=== PATIENT | male | born 1950 | race Caucasian/White ===

== ENCOUNTER 2019-11-28 10:36 | Emergency (ER) | payer MEDICARE, MEDICAID, SELFPAY ==
[2019-11-28 13:50] VITALS: BP 96/58; PULSE 78; RESP 18; TEMP 36.4; O2SAT 95
[2019-11-28] MEDS: cefTRIAXone 1 GM VIAL IM (14:21)
[2019-11-28] MEDS: IPRATROPIUM 0.5 MG/ALBUTEROL SULFATE 2.5 MG AMPUL.NEB 3 ML INHALATION (14:21)
[2019-11-28] MEDS: methylPREDNISolone ACETATE 40 MG/ML VIAL 80 MG IM (14:22)
[2019-11-28 14:25] VITALS: PULSE 88; RESP 19
[2019-11-28 14:40] VITALS: PULSE 87; RESP 20
[2019-11-28 14:54] LABS: Influenza Control Valid (Valid)
--- NOTE | 2019-11-28 14:57 | ED.URI ---
HPI - URI/Sore Throat General Chief Complaint: Upper Respiratory Infection Stated Complaint: sore throat, short of breath, cough Source: patient Mode of arrival: wheelchair Limitations: no limitations History of Present Illness HPI Narrative: This is a 69-year-old gentleman that presents with his with a 3 day history of cough congestion with shortness of breath with audible wheezing currently O2 saturations were 95% on room air has a history of COPD and is a smoker. Currently no nausea vomiting no chest pain or pressure no abdominal pain. MD elicited complaint: cough Pertinent past history: COPD Onset (ago): day(s) Consistency: constant Severity: mild Description of mucous: yellow Exacerbating factors: exertion and deep breaths Relieving factors: nothing Associated symptoms: cough Related Data Home Medications Medication Instructions Recorded Confirmed albuterol sulfate [Ventolin HFA] 2 puff INHALATION PRN 09/22/19 11/28/19 aspirin 81 mg PO DAILY 09/22/19 11/28/19 atorvastatin 80 mg PO HS 09/22/19 11/28/19 bupropion HCl 100 mg PO BID 09/22/19 11/28/19 clopidogrel 75 mg PO DAILY 09/22/19 11/28/19 docusate sodium 100 mg PO DAILY 09/22/19 11/28/19 metoprolol tartrate 75 mg PO BID 09/22/19 11/28/19 edhybundmdjj-lqy-ukjd-FA-vit K 1 tablet PO DAILY 09/22/19 11/28/19 [Adults Multivitamin] pregabalin [Lyrica] 200 mg PO BID 09/22/19 11/28/19 ranitidine HCl 150 mg PO BID 09/22/19 11/28/19 saw-vit E-sod zuz-vnh-wnod-pyg 1 tablet PO DAILY 09/22/19 11/28/19 [Prostate Health] Allergies Allergy/AdvReac Type Severity Reaction Status Date / Time morphine Allergy Intermediate Verified 01/19/18 09:18 No Known Allergies Allergy Unverified 08/07/12 21:07 Review of Systems Review of Systems: All systems reviewed & are unremarkable except as noted in HPI and below PMFSH Past Medical History Medical History COPD (chronic obstructive pulmonary disease) Social History Social History Smoking status: Current every day smoker Exam Const: General: no acute distress Orientation/consciousness: patient oriented x3 HENMT: Head: normal to inspection Eyes: Pupils: Equal, round and reactive pupils present Neck: Neck: normal visual inspection and no lymphadenopathy Chest: Chest palpation & inspection: normal inspection of the chest Resp: Effort & Inspection: normal respiratory effort Auscultation: wheezes and diminished lung sounds Cardio: Rate: regular rate Rhythm: regular rhythm GI: GI Palp: Yes Soft to palpation : Testes: Testes normal Urinary Catheter: Urinary Catheter: patent and draining Skin: General skin exam: normal color Psych: Mental Status: mental status grossly normal Course Vital Signs Vital signs: Vital Signs Temperature 36.4 C 11/28/19 13:50 Pulse Rate 78 11/28/19 13:50 Respiratory Rate 18 11/28/19 13:50 Blood Pressure 96/58 L 11/28/19 13:50 Pulse Oximetry 95 11/28/19 13:50 Temperature 36.4 C 11/28/19 13:50 Pulse Rate 87 11/28/19 14:40 Respiratory Rate 20 11/28/19 14:40 Blood Pressure 96/58 L 11/28/19 13:50 Pulse Oximetry 95 11/28/19 13:50 MDM - URI/Sore Throat Lab Data Labs: Lab Results 11/28/19 Range/Units 14:04 Influenza Type A Ag Negative (Negative) Influenza Type B Ag Negative (Negative) Critical Care Time Critical Care Time Critical Care Time: No Discharge Plan Discharge Clinical Impression: Bronchitis COPD (chronic obstructive pulmonary disease) Qualifiers: COPD type: unspecified COPD Qualified Code(s): J44.9 - Chronic obstructive pulmonary disease, unspecified Patient Disposition: Home, Self-Care Condition: Stable Instructions: Antibiotic Form, Acute Bronchitis (ED), COPD (Chronic Obstructive Pulmonary Disease) (ED) Additional Instructions: Take medicine as prescribed and follo
[2019-11-28 15:34] VITALS: BP 127/71
== END 2019-11-28 15:25 | disposition home or self-care (01) ==
PROVIDERS: Emergency Provider Emergency Medicine; PCP Family Medicine
DX: J40 Bronchitis, not specified as acute or chronic (principal); J44.9 Chronic obstructive pulmonary disease, unspecified; F17.200 Nicotine dependence, unspecified, uncomplicated
CPT/HCPCS: 87804; 94640; 96372; 99283; 99284; J0696; J1030

== ENCOUNTER 2020-05-23 19:53 | Emergency (ER) | payer MEDICARE, MEDICAID, SELFPAY ==
--- NOTE | ~2020-05-23 | XR_ITS ---
XR abdomen/kub 1V DATE: 05/23/2020 20:42 INDICATION: Nausea TECHNIQUE: AP view COMPARISON: None FINDINGS: No bowel obstruction or visceromegaly. There is a vascular stent overlying the right common and external iliac arteries. IMPRESSION: Nonspecific abdomen Reviewed, dictated and finalized at [facility]. Reviewed, dictated and finalized at [facility]. IMPRESSION: Nonspecific abdomen
[2020-05-23 20:00] VITALS: BP 152/83; PULSE 82; RESP 14; TEMP 36.4; O2SAT 99
--- NOTE | 2020-05-23 20:10 | ECG_ITS ---
Measurements Intervals [place] Rate: 84 P: 73 NH: 182 QRS: 61 QRSD: 93 T: 71 QT: 354 QTc: 420 Interpretive Statements SINUS RHYTHM BASELINE ARTIFACT- I, II, III, AVR, AVL, V4 NORMAL ECG Electronically Signed On 05-24-2020 7:18:53 CDT by Jamison Turcios D.O.
[2020-05-23] MEDS: ONDANSETRON INJ 4 MG/2 ML VIAL IV PUSH (20:11)
--- NOTE | 2020-05-23 20:19 | ED.NAVMDI ---
HPI - Nausea/Vomiting/Diarrhea General Chief complaint: Nausea/Vomiting/Diarrhea Stated complaint: AMB Source: patient Mode of arrival: ambulatory Limitations: no limitations and other (has had stroke and has word finding problems. ) History of Present Illness HPI Narrative: Pt is a 69 yo male who presents to the emergency department with complaints of nausea. Patient states that he has had diarrhea on and off all day long but tonight began to have nausea. He denies fevers chills nausea vomiting. Patient states that he does not remember eating anything that might have caused him to feel this way. Patient is alert and in no distress. There is some communication difficulties because patient has had a stroke and has some trouble with word finding. However he was able to answer yes and no questions fairly easily and reliably. MD elicited complaint: nausea, vomiting and diarrhea Onset (ago): hour(s) Description of vomiting: other ( No vomiting but he has had dry heaves) Associated nausea: Yes Associated abdominal pain: No Location of pain: none Exacerbating factors: none Relieving factors: none Context: marijuana use Associated symptoms: nausea/vomiting Related Data Home Medications Medication Instructions Recorded Confirmed albuterol sulfate [Ventolin HFA] 2 puff INHALATION PRN 09/22/19 05/23/20 aspirin 81 mg PO DAILY 09/22/19 05/23/20 atorvastatin 80 mg PO HS 09/22/19 05/23/20 bupropion HCl 100 mg PO BID 09/22/19 05/23/20 clopidogrel 75 mg PO DAILY 09/22/19 05/23/20 docusate sodium 100 mg PO DAILY 09/22/19 05/23/20 hvxxoonzqohq-lai-gecs-FA-vit K 1 tablet PO DAILY 09/22/19 05/23/20 [Adults Multivitamin] saw-vit E-sod zxo-ryg-spna-pyg 1 tablet PO DAILY 09/22/19 05/23/20 [Prostate Health] Allergies Allergy/AdvReac Type Severity Reaction Status Date / Time morphine Allergy Intermediate Unknown Verified 03/01/20 08:10 Review of Systems Review of Systems: All systems reviewed & are unremarkable except as noted in HPI and below Constitutional: Constitutional: Reports no additional constitutional complaints Eyes: Eyes: Reports no additional eye complaints ENT: Reports system reviewed and no additional complaints, except as documented Cardiovascular: Cardiovascular: Reports no additional cardiovascular complaints Respiratory: Respiratory: Reports no additional respiratory complaints Gastrointestinal: Gastrointestinal: Denies abdominal pain, Reports diarrhea, Reports nausea and Reports vomiting Musculoskeletal: Musculoskeletal: Reports as per HPI Integumentary/Breasts: Skin/Breast: Reports as per HPI Neurologic: Reports as per HPI Psychiatric: Psychiatric: Reports as per HPI Endocrine: Endocrine: Reports as per HPI Hematologic/Lymphatic: Hematologic/Lymphatic: Reports as per HPI Allergic/Immunologic: Allergic/Immunologic: Reports as per HPI PMF Past Medical History Medical History COPD (chronic obstructive pulmonary disease) CVA (cerebral vascular accident) GERD (gastroesophageal reflux disease) Hyperlipidemia Hypertension Lung cancer Nicotine dependence Phantom pain after amputation of lower extremity Surgical History Surgical History History of below-knee amputation of both lower extremities Social History Social History Smoking status: Current every day smoker Tobacco type: cigarettes Substance use: current Substance use type: marijuana Additional living arrangements comments: . 2 Children. 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
[2020-05-23 20:30] VITALS: BP 143/102; PULSE 88; RESP 14; O2SAT 97
[2020-05-23 20:30] LABS: Basophils Absolute Auto 0.01 K/mm3 (0.00-0.10); Basophils Percent Auto 0.2 % (0.0-1.0); Eosinophils Absolute Auto 0.05 K/mm3 (0.02-0.50); Eosinophils Percent Auto 0.9 % (1.0-6.0); Hematocrit 40.2 % (37.0-46.0); Hemoglobin 13.7 g/dL (12.4-15.3); Immature Granulocyte Absolute 0.02 K/mm3 (0.00-0.00); Immature Granulocyte Percent A 0.3 % (0.0-0.0); Lymphocytes Absolute Auto 0.68 K/mm3 (1.10-4.50); Lymphocytes Percent Auto 11.8 % (18.0-42.0); Mean Corpuscular HGB Conc 34.1 g/dL (32.0-36.0); Mean Corpuscular Hemoglobin 32.1 pg (27.0-31.0); Mean Corpuscular Volume 94.1 fL (78.0-102.0); Mean Platelet Volume 10.2 fl (8.7-11.0); Monocytes Absolute Auto 0.59 K/mm3 (0.10-0.90); Monocytes Percent Auto 10.2 % (2.0-11.0); Neutrophils Absolute Auto 4.4 K/mm3 (1.7-7.2); Neutrophils Percent Auto 76.6 % (50.0-70.0); Platelet Count Result 193 K/mm3 (150-420); Red Blood Count 4.27 M/mm3 (4.70-6.10); Red Cell Distribution Width 12.5 % (11.6-14.4); White Blood Count 5.8 K/mm3 (4.8-10.8)
[2020-05-23] MEDS: SODIUM CHLORIDE 0.9% IV 1,000 ML 999 ML IV CONT (20:30)
[2020-05-23 20:49] LABS: Alanine Aminotransferase 27 U/L (16-63); Albumin Level 3.4 g/dL (3.4-5.0); Alkaline Phosphatase 111 U/L (46-116); Anion Gap 9 mmol/L (8-16); Aspartate Amino Transferase 21 U/L (15-37); Bilirubin,Total 0.4 mg/dL (0.00-1.00); Blood Urea Nitrogen 11 mg/dL (7-18); Calcium 9.1 mg/dL (8.5-10.1); Carbon Dioxide 26 mmol/L (21-32); Chloride 104 mmol/L (98-108); Estimated Glomerular Filt Rate 49; Glucose 113 mg/dL (70-99); Lipase 294 U/L (73-393); Osmolality Calculated 288 mOsm/kg (285-295); Potassium 4.4 mmol/L (3.5-5.1); Sodium 139 mmol/L (136-145); Total Protein 7.5 g/dL (6.4-8.2)
[2020-05-23 20:50] LABS: Troponin I < 0.02 ng/mL (0.00-0.056)
[2020-05-23 21:00] VITALS: BP 170/61; PULSE 80; RESP 15; O2SAT 98
[2020-05-23 21:30] VITALS: BP 165/85; PULSE 81; RESP 12; O2SAT 100
[2020-05-23 21:32] LABS: Add Urine Microscopic? YES; Appearance Urine Clear (Clear); Bilirubin Urine Negative (Negative); Blood Urine Negative (Negative); Color Urine Yellow (Yellow); Glucose Urine UA Negative (Negative); Ketones Urine 2+ (Negative); Leukocyte Esterase Ur Negative LEU/UL (Negative); Nitrate Urine Negative (Negative); Protein Urine Negative (Negative); Specific Grav Ur 1.025 (1.010-1.020); Urobilinogen Urine 0.2 mg/dL (0.2-1.0); pH Urine 6.5 (5.0-8.0)
[2020-05-23 21:38] LABS: Bacteria Urine Trace /hpf; Mucus Urine Few /lpf; RBC Urine 0-2 /hpf (0-2); WBC Urine 0-3 /hpf (0-3)
[2020-05-23 21:45] VITALS: BP 163/50; PULSE 88; RESP 15; O2SAT 100
[2020-05-23 22:04] VITALS: BP 171/104; PULSE 88; RESP 13; TEMP 36.4; O2SAT 100
[2020-05-23] MEDS: ONDANSETRON HCL ODT 4 MG TABLET PO (22:04)
== END 2020-05-23 22:11 | disposition home or self-care (01) ==
PROVIDERS: Emergency Provider Emergency Medicine; PCP Family Medicine
DX: K52.9 Noninfective gastroenteritis and colitis, unspecified (principal); I69.328 Other speech and language deficits following cerebral infarction; J44.9 Chronic obstructive pulmonary disease, unspecified; K21.9 Gastro-esophageal reflux disease without esophagitis; E78.5 Hyperlipidemia, unspecified; I10 Essential (primary) hypertension; C34.90 Malignant neoplasm of unspecified part of unspecified bronchus or lung; G54.6 Phantom limb syndrome with pain; F17.200 Nicotine dependence, unspecified, uncomplicated; Z89.519 Acquired absence of unspecified leg below knee
CPT/HCPCS: 36415; 74018; 80053; 81001; 83690; 84484; 85025; 93005; 96361; 96374; 96376; 99283; 99284; A9270; J2405; J7030

== ENCOUNTER 2021-05-30 08:17 | Outpatient (CLI) | payer MEDICARE, MEDICAID, SELFPAY ==
--- NOTE | ~2021-05-30 | CT_ITS ---
EXAMINATION: CT diagnostic chest w con DATE: 05/30/2021 09:06 INDICATION: Malignant neoplasm of the right lung TECHNIQUE: Transaxial computed tomographic images of the chest were obtained after the administration of 75 cc of Omnipaque 350 intravenous contrast. The dose-length product (DLP) was 174.60 mGy-cm. Ite rative reconstruction was used. COMPARISON: PET/CT, 08/18/2018; outside hospital CT, 02/24/2020 FINDINGS: There is severe emphysema. A 1.6 cm right hilar nodule is unchanged in size since the most recent comparison. There are stable perihilar reticular opacities as well as bronchiectasis, consiste nt with treatment change. There is a 6 mm nodule of the left lower lobe on image 111. A calcified nod ule of the right lower lobe is consistent with old granulomatous disease. There is no pleural effusio n or pneumothorax. There is rounded atelectasis in the left lower lobe. A left internal jugular Port- A-Cath ends with its tip in the distal superior vena cava. No pathologically enlarged thoracic lymph nodes are identified. The heart size is normal. Calcified coronary artery atherosclerosis is noted. T here is moderate thoracic spondylosis. IMPRESSION: 1. Stable right hilar nodule, consistent with treated malignancy. 2. Indeterminate 6 mm nodule of the left lower lobe. Attention on follow-up examinations is recommend ed. 3. Severe emphysema. Reviewed, dictated and finalized at [facility]. IMPRESSION: 1. Stable right hilar nodule, consistent with treated malignancy. 2. Indeterminate 6 mm nodule of the left lower lobe. Attention on follow-up exa minations is recommended. 3. Severe emphysema.
[2021-05-30 08:30] LABS: Basophils Absolute Auto 0.03 K/mm3 (0.00-0.10); Basophils Percent Auto 0.6 % (0.0-1.0); Eosinophils Absolute Auto 0.12 K/mm3 (0.02-0.50); Eosinophils Percent Auto 2.4 % (1.0-6.0); Hematocrit 39.6 % (37.0-46.0); Hemoglobin 13.4 g/dL (12.4-15.3); Immature Granulocyte Absolute 0.01 K/mm3 (0.00-0.00); Immature Granulocyte Percent A 0.2 % (0.0-0.0); Lymphocytes Absolute Auto 0.98 K/mm3 (1.10-4.50); Mean Corpuscular HGB Conc 33.8 g/dL (32.0-36.0); Mean Corpuscular Hemoglobin 32.1 pg (27.0-31.0); Mean Platelet Volume 9.6 fl (8.7-11.0); Monocytes Absolute Auto 0.71 K/mm3 (0.10-0.90); Monocytes Percent Auto 14.5 % (2.0-11.0); Neutrophils Absolute Auto 3.1 K/mm3 (1.7-7.2); Neutrophils Percent Auto 62.3 % (50.0-70.0); Platelet Count Result 159 K/mm3 (150-420); Red Blood Count 4.17 M/mm3 (4.70-6.10); Red Cell Distribution Width 13.8 % (11.6-14.4); White Blood Count 4.9 K/mm3 (4.8-10.8)
[2021-05-30 08:46] LABS: Alanine Aminotransferase 38 U/L (16-63); Albumin Level 3.1 g/dL (3.4-5.0); Alkaline Phosphatase 91 U/L (46-116); Anion Gap 5 mmol/L (8-16); Aspartate Amino Transferase 22 U/L (15-37); Bilirubin,Total 0.2 mg/dL (0.00-1.00); Blood Urea Nitrogen 22 mg/dL (7-18); Calcium 8.6 mg/dL (8.5-10.1); Carbon Dioxide 31 mmol/L (21-32); Chloride 107 mmol/L (98-108); Estimated Glomerular Filt Rate 52; Glucose 83 mg/dL (70-99); Osmolality Calculated 298 mOsm/kg (285-295); Potassium 4.3 mmol/L (3.5-5.1); Sodium 143 mmol/L (136-145); Total Protein 6.6 g/dL (6.4-8.2)
== END 2021-05-30 08:18 | disposition home or self-care (01) ==
LOC: CHSIMG 08:21
PROVIDERS: PCP Family Medicine; Visit Provider Internal Medicine Hematology & Oncology
DX: C34.90 Malignant neoplasm of unspecified part of unspecified bronchus or lung (principal)
CPT/HCPCS: 36415; 71260; 80053; 85025; Q9967

== ENCOUNTER 2022-01-04 09:35 | Outpatient (CLI) | payer MEDICARE, MEDICAID, SELFPAY ==
--- NOTE | ~2022-01-04 | CT_ITS ---
EXAMINATION: CT diagnostic chest w con DATE: 01/04/2022 10:17 INDICATION: Malignant neoplasm of the lung TECHNIQUE: Transaxial computed tomographic images of the chest were obtained after the administration of 75 cc of Omnipaque 350 intravenous contrast. The dose-length product (DLP) was 173.38 mGy-cm. Ite rative reconstruction was used. COMPARISON: 05/30/2021 FINDINGS: There is a stable 1.6 cm right hilar nodule. There are unchanged perihilar reticular opacit ies and bronchiectasis. Severe emphysema is noted. A left internal jugular Port-A-Cath ends with its tip distal superior vena cava. The previously described 6 mm nodule of the left lower is not definite ly identified. No new pulmonary nodules are seen. There is rounded atelectasis in the lower lobe. No pleural effusion or pneumothorax is identified. Calcified pulmonary nodules are consistent with old g ranulomatous disease. No pathologically enlarged thoracic lymph nodes are identified. The heart size is normal. There is moderate thoracic spondylosis. IMPRESSION: 1. Stable right hilar nodule, consistent with treated malignancy. 2. Previously described left lower lobe nodule no longer evident, likely resolving infection or infla mmation. 3. Severe emphysema. Reviewed, dictated and finalized at [facility]. IMPRESSION: 1. Stable right hilar nodule, consistent with treated malignancy. 2. Previously described left lower lobe nodule no longer evident, likely resolv ing infection or inflammation. 3. Severe emphysema.
[2022-01-04 10:13] LABS: Estimated Glomerular Filt Rate 46
== END 2022-01-04 09:36 | disposition home or self-care (01) ==
PROVIDERS: PCP Nurse Practitioner Family; Visit Provider Internal Medicine Hematology & Oncology
DX: C34.91 Malignant neoplasm of unspecified part of right bronchus or lung (principal); J43.9 Emphysema, unspecified
CPT/HCPCS: 71260; Q9967

== ENCOUNTER 2022-01-16 12:41 | Outpatient (CLI) | payer MEDICARE, MEDICAID, SELFPAY ==
[2022-01-16 12:52] LABS: Basophils Percent Auto 0.5 % (0.2-1.2); Eosinophils Absolute Auto 0.1 K/mm3 (0-0.3); Eosinophils Percent Auto 1.8 % (0-4.4); Hematocrit 42.4 % (42.0-52.0); Hemoglobin 13.5 g/dL (14.0-18.0); Immature Granulocyte Absolute 0.01 K/mm3 (0.00-0.031); Immature Granulocyte Percent A 0.2 % (0-0.5); Lymphocytes Absolute Auto 1.12 K/mm3 (0.9-3.2); Lymphocytes Percent Auto 16.9 % (18.3-44.2); Mean Corpuscular HGB Conc 31.8 g/dl (32-36); Mean Corpuscular Hemoglobin 31.3 pg (26-34); Mean Corpuscular Volume 98.4 fl (80-100); Mean Platelet Volume 10.4 fl (7.4-10.4); Monocytes Absolute Auto 0.8 K/mm3 (0.1-0.6); Monocytes Percent Auto 12.4 % (2.6-8.5); Neutrophils Absolute Auto 4.5 K/mm3 (1.3-6.7); Neutrophils Percent Auto 68.2 % (45.5-73.1); Platelet Count Result 176 k/mm3 (150-375); Red Blood Count 4.31 M/mm3 (4.6-6.20); Red Cell Distribution Width 13.6 % (11.5-14.5); White Blood Count 6.6 K/mm3 (4.5-10.0)
[2022-01-16 12:57] LABS: Blood Urea Nitrogen 24 mg/dL (8-26); Carbon Dioxide 28 mmol/L (22-30); Chloride 102 mmol/L (98-109); Estimated Glomerular Filt Rate 50; Glucose 96 mg/dL (70-105); Ionized Calcium (POC) 1.24 mmol/L (1.11-1.31); Potassium 5.1 mmol/L (3.5-4.9); Sodium 139 mmol/L (138-146)
[2022-01-16 14:27] LABS: Alanine Aminotransferase 24 U/L (4-50); Alkaline Phosphatase 85 U/L (38-126); Anion Gap 5 mmol/L (8-16); Aspartate Amino Transferase 28 U/L (17-59); Bilirubin,Total 0.2 mg/dL (0.2-1.3); Blood Urea Nitrogen 24 mg/dL (9-20); Calcium 8.9 mg/dL (8.4-10.2); Carbon Dioxide 27 mmol/L (22-30); Chloride 104 mmol/L (98-107); Estimated Glomerular Filt Rate 50; Glucose 98 mg/dL (65-110); Sodium 136 mmol/L (137-145)
== END 2022-01-16 12:42 | disposition home or self-care (01) ==
LOC: ANHLAB 12:42
PROVIDERS: PCP Nurse Practitioner Family; Visit Provider Internal Medicine Hematology & Oncology
DX: C34.90 Malignant neoplasm of unspecified part of unspecified bronchus or lung (principal)
CPT/HCPCS: 36415; 80047; 80053; 85025

== ENCOUNTER 2022-07-18 14:09 | Outpatient (CLI) | payer MEDICARE, MEDICAID, SELFPAY ==
--- NOTE | ~2022-07-18 | CT_ITS ---
EXAMINATION: CT diagnostic chest wo con DATE: 07/18/2022 14:33 INDICATION: Malignant neoplasm of the lung TECHNIQUE: Computed tomography (CT) of the chest was performed without intravenous contrast. The dose -length product (DLP) was 169.04 mGy-cm. Automated exposure control and iterative reconstruction tech nique were employed. COMPARISON: 01/04/2022 FINDINGS: There is severe emphysema. A left internal jugular Port-A-Cath ends with its tip in the dis pranav superior vena cava. There is a stable 1.6 cm right hilar nodule with unchanged perihilar reticula r opacities and bronchiectasis. There is rounded atelectasis in the left lower lobe. No pleural effus ion or pneumothorax. There is a 5 mm nodule in the left upper lobe on image 41. No pathologically enl arged thoracic lymph nodes are identified. The heart size is normal. Calcified coronary artery athero sclerosis is noted. There is moderate thoracic spondylosis. IMPRESSION: 1. Stable right hilar nodule with perihilar reticular opacities and bronchiectasis, consistent with t reated malignancy. 2. Indeterminate 5 mm nodule of the left upper lobe. Follow-up CT in three months is recommended. Reviewed, dictated and finalized at [facility]. IMPRESSION: 1. Stable right hilar nodule with perihilar reticular opacities and bronchiecta sis, consistent with treated malignancy. 2. Indeterminate 5 mm nodule of the left upper lobe. Follow-up CT in three kiesha hs is recommended.
== END 2022-07-18 14:10 | disposition home or self-care (01) ==
PROVIDERS: PCP Family Medicine; Visit Provider Internal Medicine Hematology & Oncology
DX: C34.90 Malignant neoplasm of unspecified part of unspecified bronchus or lung (principal); R91.8 Other nonspecific abnormal finding of lung field
CPT/HCPCS: 71250

== ENCOUNTER 2022-07-25 14:26 | Outpatient (CLI) | payer MEDICARE, MEDICAID, SELFPAY ==
[2022-07-25 14:47] LABS: Basophils Percent Auto 0.5 % (0.2-1.2); Eosinophils Absolute Auto 0.1 K/mm3 (0-0.3); Eosinophils Percent Auto 2.3 % (0-4.4); Hematocrit 38.4 % (42.0-52.0); Hemoglobin 12.9 g/dL (14.0-18.0); Immature Granulocyte Absolute 0.02 K/mm3 (0.00-0.031); Immature Granulocyte Percent A 0.3 % (0-0.5); Lymphocytes Absolute Auto 1.18 K/mm3 (0.9-3.2); Lymphocytes Percent Auto 19.1 % (18.3-44.2); Mean Corpuscular HGB Conc 33.6 g/dl (32-36); Mean Corpuscular Hemoglobin 31.6 pg (26-34); Mean Corpuscular Volume 94.1 fl (80-100); Mean Platelet Volume 10.3 fl (7.4-10.4); Monocytes Absolute Auto 0.7 K/mm3 (0.1-0.6); Monocytes Percent Auto 11.7 % (2.6-8.5); Neutrophils Absolute Auto 4.1 K/mm3 (1.3-6.7); Neutrophils Percent Auto 66.1 % (45.5-73.1); Platelet Count Result 182 k/mm3 (150-375); Red Blood Count 4.08 M/mm3 (4.6-6.20); Red Cell Distribution Width 14.1 % (11.5-14.5); White Blood Count 6.2 K/mm3 (4.5-10.0)
[2022-07-25 14:50] LABS: Blood Urea Nitrogen 21 mg/dL (8-26); Carbon Dioxide 25 mmol/L (22-30); Chloride 101 mmol/L (98-109); Estimated Glomerular Filt Rate 50; Glucose 80 mg/dL (70-105); Ionized Calcium (POC) 1.22 mmol/L (1.11-1.31); Potassium 4.4 mmol/L (3.5-4.9); Sodium 138 mmol/L (138-146)
[2022-07-25 17:01] LABS: Alanine Aminotransferase 30 U/L (6-50); Albumin Level 3.7 g/dL (3.5-5.1); Alkaline Phosphatase 84 U/L (38-126); Anion Gap 9 mmol/L (8-16); Aspartate Amino Transferase 37 U/L (17-59); Bilirubin,Total 0.3 mg/dL (0.2-1.3); Blood Urea Nitrogen 21 mg/dL (9-20); Calcium 8.5 mg/dL (8.4-10.2); Carbon Dioxide 25 mmol/L (22-30); Chloride 102 mmol/L (98-107); Estimated Glomerular Filt Rate 60; Glucose 80 mg/dL (65-110); Potassium 4.4 mmol/L (3.4-5.0); Sodium 136 mmol/L (137-145)
== END 2022-07-25 14:27 | disposition home or self-care (01) ==
PROVIDERS: PCP Family Medicine; Visit Provider Internal Medicine Hematology & Oncology
DX: C34.90 Malignant neoplasm of unspecified part of unspecified bronchus or lung (principal)
CPT/HCPCS: 36415; 80047; 80053; 85025

== ENCOUNTER 2022-09-03 09:33 | Outpatient (CLI) | payer MEDICARE, SELFPAY ==
[2022-09-03 10:56] LABS: Prostate Specific Antigen 0.4 ng/mL (< OR = 4.0)
== END 2022-09-03 09:34 | disposition home or self-care (01) ==
LOC: CHSLAB 09:35
PROVIDERS: PCP Family Medicine; Visit Provider Nurse Practitioner Family
DX: Z12.5 Encounter for screening for malignant neoplasm of prostate (principal)
CPT/HCPCS: 36415; 84153; G0103

== ENCOUNTER 2022-10-28 07:31 | Outpatient (CLI) | payer MEDICARE, MEDICAID, SELFPAY ==
--- NOTE | ~2022-10-28 | CT_ITS ---
CT Scan of the Chest without Contrast: Clinical Indication: Lung cancer Technique: Contiguous sections were acquired throughout the chest without intravenous contrast. Dose reduction technique was used on this scan by utilizing automated exposure control and iterative recon struction technique. The dose-length product (DLP) was 183.99 mGy-cm. COMPARISON: 07/18/2022 Findings: There is no evidence of any significant mediastinal, hilar or axillary lymphadenopathy. The mediastin al soft tissues appear normal. There is no evidence of pleural or pericardial effusion. Patient is status post right upper lobectomy. There is focal soft tissue thickening and increased den sity in the right hilar region, stable from prior exam, likely postoperative and/or postradiation jeff nge. Large calcified right lower lobe granuloma present. There is moderate emphysema. There is a stab le small irregular nodule in the left upper lobe measuring 7 mm in diameter (axial image 45). Images through the upper abdomen reveal no abnormalities. Impression: Status post right upper lobectomy. Stable postoperative and/or postradiation changes at the right hil um. 7 mm left upper lobe pulmonary nodule, unchanged, indeterminate. Continued follow up to document 2 ye ars of stability is advised. Moderate emphysema. Reviewed, dictated and finalized at location . [facility] Impression: Status post right upper lobectomy. Stable postoperative and/or postradiation ch anges at the right hilum. 7 mm left upper lobe pulmonary nodule, unchanged, indeterminate. Continued foll ow up to document 2 years of stability is advised. Moderate emphysema.
== END 2022-10-28 07:32 | disposition home or self-care (01) ==
PROVIDERS: PCP Family Medicine; Visit Provider Internal Medicine Hematology & Oncology
DX: C34.90 Malignant neoplasm of unspecified part of unspecified bronchus or lung (principal); R91.1 Solitary pulmonary nodule; J43.9 Emphysema, unspecified
CPT/HCPCS: 71250

== ENCOUNTER 2022-11-04 14:03 | Outpatient (CLI) | payer MEDICARE, MEDICAID, SELFPAY ==
[2022-11-04 14:15] LABS: Basophils Percent Auto 0.6 % (0.2-1.2); Eosinophils Absolute Auto 0.2 K/mm3 (0-0.3); Eosinophils Percent Auto 2.4 % (0-4.4); Hemoglobin 12.8 g/dL (14.0-18.0); Immature Granulocyte Absolute 0.02 K/mm3 (0.00-0.031); Immature Granulocyte Percent A 0.3 % (0-0.5); Lymphocytes Absolute Auto 1.35 K/mm3 (0.9-3.2); Lymphocytes Percent Auto 19.3 % (18.3-44.2); Mean Corpuscular HGB Conc 33.7 g/dl (32-36); Mean Corpuscular Hemoglobin 31.8 pg (26-34); Mean Corpuscular Volume 94.5 fl (80-100); Monocytes Absolute Auto 0.8 K/mm3 (0.1-0.6); Neutrophils Absolute Auto 4.7 K/mm3 (1.3-6.7); Neutrophils Percent Auto 66.4 % (45.5-73.1); Platelet Count Result 188 k/mm3 (150-375); Red Blood Count 4.02 M/mm3 (4.6-6.20); Red Cell Distribution Width 13.8 % (11.5-14.5)
== END 2022-11-04 14:04 | disposition home or self-care (01) ==
LOC: ANHLAB 14:05
PROVIDERS: PCP Family Medicine; Visit Provider Internal Medicine Hematology & Oncology
DX: C34.90 Malignant neoplasm of unspecified part of unspecified bronchus or lung (principal)
CPT/HCPCS: 36415; 85025

== ENCOUNTER 2023-02-18 09:28 | Emergency (ER) | payer MEDICARE, MEDICAID, SELFPAY ==
[2023-02-18] VITALS (17 sets, daily range): BP systolic 120–157; BP diastolic 68–89; PULSE 90–105; RESP 18–20; TEMP 36.3–36.8; O2SAT 91–99
--- NOTE | ~2023-02-18 | XR_ITS ---
EXAMINATION: XR chest 2V DATE: 02/18/2023 10:00 INDICATION: Dyspnea and wheezing. Prior right hilar lung cancer. TECHNIQUE: frontal and lateral views of the chest were obtained. COMPARISON: Chest radiograph dated 09/22/[address] dated 10/28/2022 FINDINGS: Emphysema with increased lucency and architectural distortion in the upper lung zones, right greater than left. Chronic calcified nodule in the right lower lung zone and calcified right hilar lymph node consistent with old granulomatous disease. Subtle opacity posterior left lower lung zone correspondi ng to a region of atelectasis/scarring on prior CT. No other airspace opacities, pulmonary edema, ple ural effusion or pneumothorax. Heart size is normal. Left internal jugular central venous port cathet er with distal tip at the superior cavoatrial junction. IMPRESSION: 1. Emphysema. No acute cardiopulmonary disease. Reviewed, dictated and finalized at [facility].
--- NOTE | 2023-02-18 09:34 | ED.GENADULT ---
HPI - General Adult General Chief complaint: Shortness of Breath/Dyspnea Stated complaint: short of breath Time Seen by Provider: 02/18/23 09:34 History of Present Illness HPI narrative: The patient is a 72-year-old male with history of non-small cell lung cancer of the right hilum, status post chemotherapy and radiation therapy in the past, now with a new mass in the left lower lobe that is under observation by his oncologist. History of peripheral vascular disease status post fem-pop bypass and subsequent bilateral uwqod-oog-fizh amputations. Prior stroke, hypertension, abdominal aortic aneurysm, hyperlipidemia, GERD. He does have history of COPD and has been prescribed an albuterol inhaler since October of this year by his oncologist. He does not need oxygen at home and has not been on steroids. He does continue to smoke cigarettes. The patient has a 2 week history of increasing shortness of breath, with occasional wheezing noted. He does have a dry nonproductive cough. No fevers or chills or diaphoresis. No weakness. No rhinorrhea or nasal congestion. His has been giving him her oxygen for the last 3 days and he feels better with that. No chest pain or discomfort or pressure. No abdominal pain. No nausea vomiting. Related Data Home Medications Medication Instructions Recorded Confirmed docusate sodium 100 mg capsule 100 mg PO DAILY 09/22/19 02/18/23 multivit with minerals-iron 18 1 tablet PO DAILY 09/22/19 02/18/23 mg-folic ac 400 mcg-vit K 25 mcg tablet (Adults Multivitamin) saw palm 160 mg-vit E 100 1 tablet PO DAILY 09/22/19 02/18/23 unit-selen 100 ztu-uvze-zypzal-pygeum tablet (Prostate Health) Allergies Allergy/AdvReac Type Severity Reaction Status Date / Time morphine Allergy Intermediate Hypotension Verified 02/18/23 09:30 and Hallucinations Review of Systems Review of Systems: All systems reviewed & are unremarkable except as noted in HPI and below Constitutional: Constitutional: Denies chills, Denies excessive sweating, Denies fatigue, Denies fever(s), Denies headache(s) and Denies weakness Eyes: Eyes: Denies change in vision and Denies photophobia ENT: Denies dysphagia, Denies dizziness, Denies headache(s), Denies lip swelling, Denies nasal congestion, Denies sore throat and Denies tongue swelling Cardiovascular: Cardiovascular: Denies chest pain, Denies syncope and Denies rapid heart rate Respiratory: Respiratory: Reports cough, Reports dyspnea and Reports wheezing Gastrointestinal: Gastrointestinal: Denies abdominal pain, Denies constipation, Denies dysphagia, Denies diarrhea, Denies nausea and Denies vomiting Genitourinary: Genitourinary: Denies hematuria, Denies dysuria, Denies urinary frequency and Denies urinary urgency Musculoskeletal: Musculoskeletal: Denies back pain, Denies myalgias, Denies arthralgias, Denies joint swelling and Denies numbness Integumentary/Breasts: Skin/Breast: Denies pruritus, Denies erythema and Denies rash Neurologic: Denies confusion, Denies dizziness, Denies syncope, Denies headache(s), Denies focal weakness, Denies numbness and Denies weakness Psychiatric: Psychiatric: Denies anxiety and Denies confusion Endocrine: Endocrine: Denies excessive sweating and Denies fatigue Hematologic/Lymphatic: Hematologic/Lymphatic: Denies easy bleeding and Denies easy bruising Allergic/Immunologic: Allergic/Immunologic: Denies lip swelling and Denies tongue swelling PMFSH Past Medical History Medical History COPD (chronic obstructive pulmonary disease) CVA (cerebral vascular accident) GERD (gastroesophageal reflux disease) Hyperlipidemia Hypertension Lung cancer Nicotine dependence Phantom pain after amputation of lower extremity Surgical History Surgical History History of below-knee amputation of both lower extremities S/P femoral-
--- NOTE | 2023-02-18 09:40 | ECG_ITS ---
Measurements Intervals [place] Rate: 99 P: 89 NE: 180 QRS: 80 QRSD: 85 T: 83 QT: 341 QTc: 439 Interpretive Statements SINUS RHYTHM DELAYED PRECORDIAL R/S TRANSITION BORDERLINE ECG COMPARED TO ECG 05/23/2020 20:20:08 NO SIGNIFICANT CHANGES Electronically Signed On 02-18-2023 12:15:16 CDT by Jamison Turcios D.O.
[2023-02-18] MEDS: IPRATROPIUM 0.5 MG/ALBUTEROL SULFATE 2.5 MG AMPUL.NEB 3 ML INHALATION (10:08)
[2023-02-18] MEDS: methylPREDNISolone SOD SUCC 125 MG VIAL IV PUSH (10:20)
[2023-02-18] MEDS: MAGNESIUM SULF 2 GM/WATER 50ML 2 GM/50 ML BAG IVPB (10:21)
[2023-02-18 10:38] LABS: Base Excess ABG 2.5 mmol/L (0-2); HCO3 ABG 26.7 mmol/L (23-29); Oxygen Content ABG 21.1 %vol (16.0-22.0); Oxygen Saturation ABG 94.4 % (95-97); Oxyhemoglobin 93.4 % (94-100); PCO2 ABG 40.1 mmHg (35-45); PO2 ABG 67.6 mmHg (75-85); Total Hemoglobin 16.1 g/dL (12.0-18.0); pH ABG 7.44 (7.35-7.45)
[2023-02-18 10:39] LABS: Device ROOM AIR; Modified Allen's Test Pass; Site Drawn RIGHT RADIAL
[2023-02-18 10:42] LABS: Basophils Absolute Auto 0.07 K/mm3 (0.00-0.10); Basophils Percent Auto 0.6 % (0.0-1.0); Eosinophils Absolute Auto 0.41 K/mm3 (0.02-0.50); Eosinophils Percent Auto 3.7 % (1.0-6.0); Hematocrit 43.2 % (37.0-46.0); Hemoglobin 14.7 g/dL (12.4-15.3); Immature Granulocyte Absolute 0.05 K/mm3 (0.00-0.00); Immature Granulocyte Percent A 0.5 % (0.0-0.0); Lymphocytes Absolute Auto 1.38 K/mm3 (1.10-4.50); Lymphocytes Percent Auto 12.6 % (18.0-42.0); Mean Corpuscular Hemoglobin 31.7 pg (27.0-31.0); Mean Corpuscular Volume 93.1 fL (78.0-102.0); Mean Platelet Volume 10.6 fl (8.7-11.0); Monocytes Absolute Auto 0.97 K/mm3 (0.10-0.90); Monocytes Percent Auto 8.8 % (2.0-11.0); Neutrophils Absolute Auto 8.1 K/mm3 (1.7-7.2); Neutrophils Percent Auto 73.8 % (50.0-70.0); Platelet Count Result 212 K/mm3 (150-420); Red Blood Count 4.64 M/mm3 (4.70-6.10); Red Cell Distribution Width 13.5 % (11.6-14.4)
[2023-02-18 10:55] LABS: D Dimer 0.66 mg/L (0.19-0.50)
[2023-02-18 11:01] LABS: Alanine Aminotransferase 29 U/L (16-63); Albumin Level 3.6 g/dL (3.4-5.0); Alkaline Phosphatase 99 U/L (46-116); Anion Gap 8 mmol/L (8-16); Aspartate Amino Transferase 25 U/L (15-37); Bilirubin,Total 0.6 mg/dL (0.00-1.00); Blood Urea Nitrogen 23 mg/dL (7-18); CRP 1.6 mg/dL (0.0-0.9); Calcium 9.5 mg/dL (8.5-10.1); Carbon Dioxide 31 mmol/L (21-32); Chloride 97 mmol/L (98-108); Estimated Glomerular Filt Rate 54; Glucose 103 mg/dL (70-99); NT Pro B Type Natriuretic Pept 307 pg/mL (0-125); Osmolality Calculated 285 mOsm/kg (285-295); Potassium 4.4 mmol/L (3.5-5.1); Sodium 136 mmol/L (136-145); Total Protein 7.8 g/dL (6.4-8.2); Troponin I 14.1 ng/L (0.00-60.4)
[2023-02-18 11:22] LABS: Influenza A QL RT-PCR Negative (Negative); Influenza B QL RT-PCR Negative (Negative); SARS-CoV-2 RNA PCR Negative (Negative)
[2023-02-18 11:24] LABS: RSV RNA, RT-PCR Negative (Negative)
[2023-02-18 11:41] LABS: Erythrocyte Sedimentation Rate 30 mm/hr (0-20)
== END 2023-02-18 11:28 | disposition home or self-care (01) ==
PROVIDERS: Emergency Provider Emergency Medicine; PCP Family Medicine
DX: J44.1 Chronic obstructive pulmonary disease with (acute) exacerbation (principal); I10 Essential (primary) hypertension; I71.40 Abdominal aortic aneurysm, without rupture, unspecified; E78.5 Hyperlipidemia, unspecified; K21.9 Gastro-esophageal reflux disease without esophagitis; F17.210 Nicotine dependence, cigarettes, uncomplicated; Z86.73 Personal history of transient ischemic attack (TIA), and cerebral infarction without residual deficits; Z89.512 Acquired absence of left leg below knee; Z89.511 Acquired absence of right leg below knee; F12.90 Cannabis use, unspecified, uncomplicated; Z85.118 Personal history of other malignant neoplasm of bronchus and lung; Z92.21 Personal history of antineoplastic chemotherapy; Z92.3 Personal history of irradiation; Z20.822 Contact with and (suspected) exposure to COVID-19
CPT/HCPCS: 36415; 36600; 71046; 80053; 82805; 83605; 83880; 84484; 85025; 85380; 85652; 86140; 87637; 93005; 94640; 96365; 96375; 99284; J2930; J3475

== ENCOUNTER 2023-03-03 10:10 | Outpatient (CLI) | payer MEDICARE, MEDICAID, SELFPAY ==
--- NOTE | ~2023-03-03 | CT_ITS ---
EXAMINATION:CT diagnostic chest wo con DATE: 03/03/2023 10:54 INDICATION: Malignant neoplasm of lung. TECHNIQUE: Computed tomography (CT) of the chest was performed without intravenous contrast. Automate d exposure control and iterative reconstruction technique were employed. The dose-length product (DLP ) was 181.16 mGy-cm. COMPARISON: Chest CT 10/28/2022 FINDINGS: There is moderate emphysema. A calcified right lung nodule and calcified right hilar lymph nodes are consistent with old granulomatous disease. There are airspace opacities with volume loss an d architectural distortion in perihilar right upper lobe, consistent with radiation fibrosis. There i s mild peripheral scarring in left lower lobe. Again seen are a few scattered nodules in the lungs me asuring up to 3 mm, likely benign. There is a 10 mm nodule in left upper lobe. No pleural effusion. T here is a left internal jugular port with tip in proximal right atrium. The heart size is normal. The re are coronary artery calcifications. No pericardial effusion. There is a small sliding hiatal herni a. Calcifications in the spleen are consistent with old granulomatous disease. There is mild bilatera l gynecomastia. There is severe cervical spondylosis and mild thoracic spondylosis. IMPRESSION: 1. 10 mm nodule in left lung upper lobe, increased from 8 mm on 10/28/2022, suspicious for primary bron chogenic carcinoma or metastatic disease. 2. 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 3. Moderate emphysema. Reviewed, dictated and finalized at [facility]. IMPRESSION: 1. 10 mm nodule in left lung upper lobe, increased from 8 mm on 10/28/2022, suspi cious for primary bronchogenic carcinoma or metastatic disease. 2. 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 3. Moderate emphysema.
== END 2023-03-03 10:11 | disposition home or self-care (01) ==
PROVIDERS: PCP Family Medicine; Visit Provider Internal Medicine Hematology & Oncology
DX: C34.90 Malignant neoplasm of unspecified part of unspecified bronchus or lung (principal); J43.9 Emphysema, unspecified; J84.10 Pulmonary fibrosis, unspecified
CPT/HCPCS: 71250

== ENCOUNTER 2023-03-10 11:58 | Outpatient (CLI) | payer MEDICARE, MEDICAID, SELFPAY ==
[2023-03-10 12:13] LABS: Basophils Percent Auto 0.3 % (0.2-1.2); Eosinophils Absolute Auto 0.2 K/mm3 (0-0.3); Eosinophils Percent Auto 3.4 % (0-4.4); Hematocrit 41.6 % (42.0-52.0); Hemoglobin 13.9 g/dL (14.0-18.0); Immature Granulocyte Absolute 0.02 K/mm3 (0.00-0.031); Immature Granulocyte Percent A 0.3 % (0-0.5); Lymphocytes Percent Auto 14.1 % (18.3-44.2); Mean Corpuscular HGB Conc 33.4 g/dl (32-36); Mean Corpuscular Hemoglobin 31.8 pg (26-34); Mean Corpuscular Volume 95.2 fl (80-100); Mean Platelet Volume 10.6 fl (7.4-10.4); Monocytes Absolute Auto 0.7 K/mm3 (0.1-0.6); Monocytes Percent Auto 9.7 % (2.6-8.5); Neutrophils Absolute Auto 5.1 K/mm3 (1.3-6.7); Neutrophils Percent Auto 72.2 % (45.5-73.1); Platelet Count Result 164 k/mm3 (150-375); Red Blood Count 4.37 M/mm3 (4.6-6.20); Red Cell Distribution Width 14.4 % (11.5-14.5); White Blood Count 7.1 K/mm3 (4.5-10.0)
[2023-03-10 12:17] LABS: Blood Urea Nitrogen 27 mg/dL (8-26); Carbon Dioxide 29 mmol/L (22-30); Chloride 103 mmol/L (98-109); Estimated Glomerular Filt Rate 54; Glucose 82 mg/dL (70-105); Ionized Calcium (POC) 1.22 mmol/L (1.11-1.31); Potassium 4.5 mmol/L (3.5-4.9); Sodium 142 mmol/L (138-146)
[2023-03-10 15:47] LABS: Alanine Aminotransferase 94 U/L (6-50); Albumin Level 3.8 g/dL (3.5-5.1); Alkaline Phosphatase 82 U/L (38-126); Anion Gap 5 mmol/L (8-16); Aspartate Amino Transferase 74 U/L (17-59); Bilirubin,Total 0.3 mg/dL (0.2-1.3); Blood Urea Nitrogen 27 mg/dL (9-20); Calcium 8.8 mg/dL (8.4-10.2); Carbon Dioxide 31 mmol/L (22-30); Chloride 104 mmol/L (98-107); Estimated Glomerular Filt Rate 54; Glucose 81 mg/dL (65-110); Potassium 4.5 mmol/L (3.4-5.0); Sodium 140 mmol/L (137-145)
== END 2023-03-10 11:59 | disposition home or self-care (01) ==
LOC: ANHLAB 12:00
PROVIDERS: PCP Family Medicine; Visit Provider Internal Medicine Hematology & Oncology
DX: C34.90 Malignant neoplasm of unspecified part of unspecified bronchus or lung (principal)
CPT/HCPCS: 36415; 80047; 80053; 85025

== ENCOUNTER 2023-04-08 07:06 | Outpatient (CLI) | payer MEDICARE, MEDICAID, SELFPAY ==
--- NOTE | ~2023-04-08 | PE_ITS ---
EXAMINATION: PET skull to mid thigh DATE: 04/08/2023 09:24 INDICATION: Malignant neoplasm of lung. TECHNIQUE: Blood glucose level was 98 mg/dL. 9.793 mCi of 18-fluorodeoxyglucose (18-FDG) was administ ered i.v. Low dose computed tomography (CT) images were acquired from the base of the brain to the pr oximal thighs for attenuation correction and anatomic localization. Automated exposure control was em ployed. Dose-length product (DLP) was 545 mGy-cm. Positron emission tomography (PET) images were acqu ired in the same distribution. COMPARISON: Chest CT 03/03/2023 FINDINGS: Head/neck: There are no pathologically enlarged lymph nodes. There is a left internal jugular port wi th tip in proximal right atrium. There is severe cervical spondylosis. Chest: There is moderate emphysema. There are airspace opacities with volume loss in right perihilar region with maximum SUV of 7.1. A calcified right lung nodule and calcified right hilar lymph nodes a re consistent with old granulomatous disease. There is a 10 mm nodule in left upper lobe with maximum SUV of 9.4. There is mild atelectasis in left lower lobe. The heart size is normal. There are spencer ry artery calcifications. No pericardial effusion. Again seen is an ununited fracture of right 11th r ib. There are old healed left rib fractures. Abdomen/pelvis/proximal thighs: There is a small sliding hiatal hernia. The liver, gallbladder, and p ancreas are normal. Calcifications in the spleen are consistent with old granulomatous disease. The a drenal glands and right kidney are normal. There is a 16 mm cyst in left kidney. There is calcified a therosclerosis of the aorta and many of the other arteries. There is a stent in right external iliac artery. There is a graft from right common femoral artery to left common femoral artery. There is a r etained graft fragment in the lower anterior abdominal wall. IMPRESSION: 1. 10 mm nodule in left lung upper lobe with increased activity, consistent with primary bronchogenic carcinoma or metastatic disease. 2 . Airspace opacities with volume loss and increased activity in right perihilar region, consistent with radiation pneumonitis. 3. Moderate emphysema. Reviewed, dictated and finalized at location A. IMPRESSION: 1. 10 mm nodule in left lung upper lobe with increased activity, consistent wit h primary bronchogenic carcinoma or metastatic disease. 2 . Airspace opacities with volume loss and increased activity in right perihil ar region, consistent with radiation pneumonitis. 3. Moderate emphysema.
[2023-04-08 07:52] LABS: Glucose Point of Care 98 mg/dl (65-105)
== END 2023-04-08 07:07 | disposition home or self-care (01) ==
PROVIDERS: PCP Family Medicine; Visit Provider Internal Medicine Hematology & Oncology
DX: C7A.090 Malignant carcinoid tumor of the bronchus and lung (principal); R91.1 Solitary pulmonary nodule; J43.9 Emphysema, unspecified; R91.8 Other nonspecific abnormal finding of lung field
CPT/HCPCS: 78815; A9552

== ENCOUNTER 2023-04-16 09:58 | Outpatient (RCR) | payer MEDICAID, SELFPAY ==
--- NOTE | 2023-04-16 10:23 | WPDONCPN ---
Progress Note: A/P (1) Lung cancer Code(s): C34.90 - Malignant neoplasm of unspecified part of unspecified bronchus or lung Status: Chronic Assessment and plan: Patient with HX OF STAGE II SQUAMOUS CELL CARCINOMA OF THE RIGHT HILAR REGION DX 10/22/2018. -S/P CONCURRENT CHEMORADIATION COMPLETED 12/2018. WAS NOT SURGICAL CANDIDATE DUE TO SEVERE COPD A CT chest was done 03/03/23 for increased cough and showed increasing size of 10mm ANTELMO nodule. This was followed with PET/CT scan done 04/08/23 which shows increase uptake in ANTELMO with SUV o 7.1 concerning for new or metastatic cancer. Right hilar region has radiation pneumonitis with increased uptake but no mass. Patient continues to smoke. I believe this is new primary. Nodule is 10mm and I am sending the patient to radiation oncologist for consideration of SBRT. Patient stated understanding. He also has cough and I have prescribed him Z pack. He will RTC to see Dr. Donis in 1 month. - Time Spent With Patient Total time spent is greater than 50% in coordination of care (as documented) at patient's floor/unit and/or counseling patient: 25 - 35 minutes Subjective Interval history: REASON FOR VISIT: HX OF STAGE II SQUAMOUS CELL CARCINOMA OF THE RIGHT HILAR REGION DX 10/22/2018 -S/P CONCURRENT CHEMORADIATION COMPLETED 12/2018. WAS NOT SURGICAL CANDIDATE DUE TO SEVERE COPD HPI: Patient is here for follow up of the PET/CT scan done 04/08/23 for new 10mm ANTELMO nodule seen in the Chest CT scan don 03/03/23. PET/CT shows increase uptake in ANTELMO with SUV o 7.1 concerning for new or metastatic cancer. Right hilar region has radiation pneumonitis with increased uptake but no mass. Patient continues to smoke. Review of Systems - Review of Systems Patient continues to smoke. reports he is coughing more and bringing up phlegm. there is no fever or chills. No chest pain or hemoptysis. he has chronic dyspnea. Denies headache, dizziness, falls, Denies abdominal pain, n/v/d. Denies hematochezia or melena. No hematuria. No lymphadenopathy Exam - Constitutional no acute distress - Routine HEENT Exam Head: Present: atraumatic, normal inspection Eye: Present: EOMI ENT: Present: mucous membranes dry, nares patent - Routine Neck Exam Present: full ROM - Routine Respiratory Exam Present: decreased breath sounds, prolonged expiratory phase, wheezes - Routine Cardiovascular Exam Cardiovascular: Present: RRR, S1, S2 - Routine Extremities Exam Present: amputation (bilateral above knee amputation) - Routine Skin Exam Present: intact - Routine Neurological Exam Present: alert, oriented X3, CN II-XII intact PN: Objective Data - Imaging CT scan - chest Radiologist's impression: Ordering Physician: Jos Donis MD Date of Service: 04/08/23 Procedure(s): PET skull to mid thigh Accession Number(s): [id number] cc: Jos Donis MD; Greg Burgos DO~ EXAMINATION: PET skull to mid thigh DATE: 04/08/2023 09:24 INDICATION: Malignant neoplasm of lung. TECHNIQUE: Blood glucose level was 98 mg/dL. 9.793 mCi of 18-fluorodeoxyglucose (18-FDG) was administered i.v. Low dose computed tomography (CT) images were acquired from the base of the brain to the proximal thighs for attenuation correction and anatomic localization. Automated exposure control was employed. Dose-length product (DLP) was 545 mGy-cm. Positron emission tomography (PET) images were acquired in the same distribution. COMPARISON: Chest CT 03/03/2023 FINDINGS: Head/neck: There are no pathologically enlarged lymph nodes. There is a left internal jugular port with tip in proximal right atrium. There is severe cervical spondylosis. Chest: There is moderate emphysema. There are airspace opacities with volume loss in right perihilar region with maximum SUV of 7.1. A calcified right lung nodule and calcified right hilar lymph nodes are consistent with old granulomatous disease. There is a 10 mm nodule in left upp
== END 2023-04-21 10:50 ==
LOC: AMCINF 09:58
PROVIDERS: PCP Family Medicine; Visit Provider Internal Medicine
DX: C34.90 Malignant neoplasm of unspecified part of unspecified bronchus or lung (principal)
CPT/HCPCS: 99199

== ENCOUNTER 2023-04-30 09:46 | Outpatient (CLI) | payer MEDICARE, SELFPAY ==
[2023-04-30 09:59] LABS: Basophils Absolute Auto 0.04 K/mm3 (0.00-0.10); Basophils Percent Auto 0.4 % (0.0-1.0); Eosinophils Absolute Auto 0.33 K/mm3 (0.02-0.50); Hematocrit 42.2 % (37.0-46.0); Hemoglobin 14.3 g/dL (12.4-15.3); Immature Granulocyte Absolute 0.04 K/mm3 (0.00-0.00); Immature Granulocyte Percent A 0.4 % (0.0-0.0); Lymphocytes Absolute Auto 1.05 K/mm3 (1.10-4.50); Lymphocytes Percent Auto 9.4 % (18.0-42.0); Mean Corpuscular HGB Conc 33.9 g/dL (32.0-36.0); Mean Corpuscular Hemoglobin 32.3 pg (27.0-31.0); Mean Corpuscular Volume 95.3 fL (78.0-102.0); Mean Platelet Volume 10.5 fl (8.7-11.0); Monocytes Absolute Auto 0.82 K/mm3 (0.10-0.90); Monocytes Percent Auto 7.3 % (2.0-11.0); Neutrophils Absolute Auto 8.9 K/mm3 (1.7-7.2); Neutrophils Percent Auto 79.5 % (50.0-70.0); Platelet Count Result 174 K/mm3 (150-420); Red Blood Count 4.43 M/mm3 (4.70-6.10); White Blood Count 11.2 K/mm3 (4.8-10.8)
[2023-04-30 10:55] LABS: Alanine Aminotransferase 37 U/L (16-63); Albumin Level 3.3 g/dL (3.4-5.0); Alkaline Phosphatase 96 U/L (46-116); Anion Gap 8 mmol/L (8-16); Aspartate Amino Transferase 25 U/L (15-37); Bilirubin,Total 0.4 mg/dL (0.00-1.00); Blood Urea Nitrogen 26 mg/dL (7-18); Calcium 8.9 mg/dL (8.5-10.1); Carbon Dioxide 30 mmol/L (21-32); Chloride 101 mmol/L (98-108); Estimated Glomerular Filt Rate 56; Glucose 105 mg/dL (70-99); Osmolality Calculated 292 mOsm/kg (285-295); Potassium 4.2 mmol/L (3.5-5.1); Sodium 139 mmol/L (136-145); Total Protein 6.8 g/dL (6.4-8.2); Vitamin B12 1410 pg/mL (193-986)
[2023-04-30 10:56] LABS: Folic Acid > 20.0 ng/mL (8.6->20)
[2023-04-30 10:57] LABS: Thyroid Stimulating Hormone Reflex 2.53 u/IU/mL (0.36-3.74)
== END 2023-04-30 09:47 | disposition home or self-care (01) ==
LOC: CHSLAB 09:47
PROVIDERS: PCP Family Medicine; Visit Provider Family Medicine
DX: E11.9 Type 2 diabetes mellitus without complications (principal); E53.8 Deficiency of other specified B group vitamins; R41.89 Other symptoms and signs involving cognitive functions and awareness
CPT/HCPCS: 36415; 80053; 82607; 82746; 84443; 85025

== ENCOUNTER 2023-05-01 08:18 | Outpatient (CLI) | payer MEDICARE, MEDICAID, SELFPAY ==
--- NOTE | ~2023-05-01 | MR_ITS ---
EXAMINATION: MR brain IAC wo con DATE: 05/01/2023 08:55 INDICATION: Vertigo. TECHNIQUE: Magnetic resonance imaging (MRI) of the brain, brainstem, and internal auditory canals was performed without intravenous contrast. COMPARISON: Brain MRI 08/29/2018 FINDINGS: There is an old infarct in left frontotemporal parietal region. There is an acute infarct i n right temporal occipital region in the expected distribution of right middle cerebral artery. There is a small old infarct in right cerebellum. There are old lacunar infarcts in the bilateral basal ga nglia. There are scattered areas of nonspecific increased T2-weighted signal intensity in the cerebra l white matter and ryan. There is no intracranial hemorrhage or abnormal mass lesion. The ventricles are normal in size. The orbits are normal. There is mucosal thickening in the paranasal sinuses. The mastoid air cells are normal. IMPRESSION: 1. Acute infarct in right temporal occipital region. 2. Old infarcts involving the left frontotemporal parietal region, right cerebellum, and bilateral ba nader ganglia. 3. Moderate nonspecific cerebral white matter disease and pontine disease, which likely represents ch ronic small vessel ischemic disease. Reviewed, dictated and finalized at location A. IMPRESSION: 1. Acute infarct in right temporal occipital region. 2. Old infarcts involving the left frontotemporal parietal region, right cerebe llum, and bilateral basal ganglia. 3. Moderate nonspecific cerebral white matter disease and pontine disease, whic h likely represents chronic small vessel ischemic disease.
== END 2023-05-01 08:19 | disposition home or self-care (01) ==
LOC: CHSIMG 08:20
PROVIDERS: PCP Family Medicine; Visit Provider Family Medicine
DX: I63.9 Cerebral infarction, unspecified (principal); R41.89 Other symptoms and signs involving cognitive functions and awareness; R90.82 White matter disease, unspecified
CPT/HCPCS: 70551

== ENCOUNTER 2023-05-19 09:06 | Outpatient (CLI) | payer MEDICARE, SELFPAY ==
[2023-05-19 09:20] LABS: Basophils Percent Auto 0.3 % (0.2-1.2); Eosinophils Absolute Auto 0.2 K/mm3 (0-0.3); Eosinophils Percent Auto 2.6 % (0-4.4); Hemoglobin 12.7 g/dL (14.0-18.0); Immature Granulocyte Absolute 0.03 K/mm3 (0.00-0.031); Immature Granulocyte Percent A 0.4 % (0-0.5); Lymphocytes Absolute Auto 0.87 K/mm3 (0.9-3.2); Lymphocytes Percent Auto 11.3 % (18.3-44.2); Mean Corpuscular HGB Conc 33.4 g/dl (32-36); Mean Corpuscular Hemoglobin 32.3 pg (26-34); Mean Corpuscular Volume 96.7 fl (80-100); Mean Platelet Volume 10.3 fl (7.4-10.4); Monocytes Absolute Auto 0.8 K/mm3 (0.1-0.6); Monocytes Percent Auto 10.8 % (2.6-8.5); Neutrophils Absolute Auto 5.8 K/mm3 (1.3-6.7); Neutrophils Percent Auto 74.6 % (45.5-73.1); Platelet Count Result 159 k/mm3 (150-375); Red Blood Count 3.93 M/mm3 (4.6-6.20); Red Cell Distribution Width 14.6 % (11.5-14.5); White Blood Count 7.7 K/mm3 (4.5-10.0)
[2023-05-19 09:25] LABS: Blood Urea Nitrogen 25 mg/dL (8-26); Carbon Dioxide 26 mmol/L (22-30); Chloride 102 mmol/L (98-109); Estimated Glomerular Filt Rate 60; Glucose 94 mg/dL (70-105); Ionized Calcium (POC) 1.22 mmol/L (1.11-1.31); Potassium 4.4 mmol/L (3.5-4.9); Sodium 138 mmol/L (138-146)
[2023-05-19 11:19] LABS: Alanine Aminotransferase 34 U/L (6-50); Albumin Level 3.5 g/dL (3.5-5.1); Alkaline Phosphatase 66 U/L (38-126); Anion Gap 6 mmol/L (8-16); Aspartate Amino Transferase 27 U/L (17-59); Bilirubin,Total 0.4 mg/dL (0.2-1.3); Blood Urea Nitrogen 26 mg/dL (9-20); Calcium 8.7 mg/dL (8.4-10.2); Carbon Dioxide 29 mmol/L (22-30); Chloride 102 mmol/L (98-107); Estimated Glomerular Filt Rate > 60; Glucose 96 mg/dL (65-110); Potassium 4.3 mmol/L (3.4-5.0); Sodium 137 mmol/L (137-145)
== END 2023-05-19 09:07 | disposition home or self-care (01) ==
LOC: ANHLAB 09:09
PROVIDERS: PCP Family Medicine; Visit Provider Internal Medicine Hematology & Oncology
DX: C34.90 Malignant neoplasm of unspecified part of unspecified bronchus or lung (principal)
CPT/HCPCS: 36415; 80047; 80053; 85025

== ENCOUNTER 2023-06-18 10:51 | Outpatient (CLI) | payer MEDICARE, SELFPAY ==
[2023-06-18 11:07] LABS: Basophils Percent Auto 0.3 % (0.2-1.2); Eosinophils Absolute Auto 0.2 K/mm3 (0-0.3); Eosinophils Percent Auto 3.8 % (0-4.4); Hematocrit 38.6 % (42.0-52.0); Hemoglobin 12.7 g/dL (14.0-18.0); Immature Granulocyte Absolute 0.03 K/mm3 (0.00-0.031); Immature Granulocyte Percent A 0.5 % (0-0.5); Lymphocytes Absolute Auto 0.87 K/mm3 (0.9-3.2); Lymphocytes Percent Auto 14.3 % (18.3-44.2); Mean Corpuscular HGB Conc 32.9 g/dl (32-36); Mean Corpuscular Hemoglobin 32.3 pg (26-34); Mean Corpuscular Volume 98.2 fl (80-100); Mean Platelet Volume 9.9 fl (7.4-10.4); Monocytes Absolute Auto 0.8 K/mm3 (0.1-0.6); Monocytes Percent Auto 13.1 % (2.6-8.5); Neutrophils Absolute Auto 4.2 K/mm3 (1.3-6.7); Platelet Count Result 190 k/mm3 (150-375); Red Blood Count 3.93 M/mm3 (4.6-6.20); Red Cell Distribution Width 14.6 % (11.5-14.5); White Blood Count 6.1 K/mm3 (4.5-10.0)
[2023-06-18 11:10] LABS: Blood Urea Nitrogen 20 mg/dL (8-26); Carbon Dioxide 29 mmol/L (22-30); Chloride 101 mmol/L (98-109); Estimated Glomerular Filt Rate 54; Glucose 98 mg/dL (70-105); Ionized Calcium (POC) 1.14 mmol/L (1.11-1.31); Potassium 3.8 mmol/L (3.5-4.9); Sodium 139 mmol/L (138-146)
== END 2023-06-18 10:52 | disposition home or self-care (01) ==
LOC: ANHLAB 10:53
PROVIDERS: PCP Family Medicine; Visit Provider Internal Medicine Hematology & Oncology
DX: C34.90 Malignant neoplasm of unspecified part of unspecified bronchus or lung (principal)
CPT/HCPCS: 36415; 80047; 85025

== ENCOUNTER 2023-07-14 10:04 | Outpatient (CLI) | payer MEDICARE, MEDICAID, SELFPAY ==
--- NOTE | ~2023-07-14 | CT_ITS ---
Clinical Indication: Lung cancer CT Scan of the Chest with Contrast: Technique: Contiguous sections were acquired throughout the chest after intravenous administration of 75 cc of Omnipaque 350. Dose reduction technique was used on this scan by utilizing automated exposu re control and iterative reconstruction technique. The dose-length product (DLP) was 173.66 mGy-cm. COMPARISON: 03/03/2023 Findings: There is no evidence of any significant mediastinal, hilar or axillary lymphadenopathy. There is no f illing defect in the pulmonary arterial tree to suggest pulmonary embolus. There is no evidence of ao rtic dissection or aneurysm. There is no evidence of pleural or pericardial effusion. Spiculated lesion in the right perihilar region measures approximately 1.6 cm in diameter, similar to minimally decreased from prior exam. 8mm left upper lobe pulmonary nodule is decreased from prior ex am (axial image 44). Additional 3 mm left upper lobe pulmonary nodules unchanged (axial image 55). La rge calcified right basilar granuloma is present. There is moderate to severe emphysema. Images through the upper abdomen reveal no abnormalities. Impression: 1.6 or spiculated lesion right perihilar region is similar to prior exam, which could reflect treated disease. 8 mm left lower lobe pulmonary nodule is decreased in size from prior exam, as detailed above. Stable 3 mm additional left upper lobe pulmonary nodule. Moderate to advanced emphysema. [place]ed, dictated [place] [facility] [place]ression: 1.6 or spiculated lesion right perihilar region is similar to prior exam, which could reflect treated disease. 8 mm left lower lobe pulmonary nodule is decreased in size from prior exam, as detailed above. Stable 3 mm additional left upper lobe pulmonary nodule. Moderate to advanced emphysema.
[2023-07-14 10:46] LABS: Estimated Glomerular Filt Rate 54
== END 2023-07-14 10:05 | disposition home or self-care (01) ==
PROVIDERS: PCP Family Medicine; Visit Provider Internal Medicine Hematology & Oncology
DX: C34.90 Malignant neoplasm of unspecified part of unspecified bronchus or lung (principal); R91.8 Other nonspecific abnormal finding of lung field
CPT/HCPCS: 71260; Q9967

== ENCOUNTER 2023-08-25 10:02 | Outpatient (CLI) | payer MEDICARE, MEDICAID, SELFPAY ==
--- NOTE | ~2023-08-25 | CT_ITS ---
EXAMINATION: CT diagnostic chest w con DATE: 08/25/2023 10:31 INDICATION: Lung cancer. TECHNIQUE: Computed tomography (CT) of the chest was performed with 75 cc Omnipaque 350 intravenous c ontrast. The dose-length product was 138.78 mGy-cm. Automated exposure control and iterative reconstr uction technique were employed. COMPARISON: CT dated 07/14/2023 FINDINGS: Heart size normal. There is abnormal soft tissue of the right hilum and right upper lobe st able compared with prior examination allowing for technique, consistent with treated malignancy measu ring 2.1 x 1.3 cm greatest axial dimension, image 43. There is emphysema. No endobronchial lesions. C alcified granuloma right lower lobe. There is motion artifact. There is a port catheter, tip near the cavoatrial junction. There is a new 5 mm left upper lobe nodule, image 55. Additional left upper lob e nodules are stable.. IMPRESSION: 1. New left upper lobe nodule measuring 5 mm. Given the history of lung cancer, metastatic disease ca nnot be excluded. Recommend follow-up low dose CT chest in 3 months. 2: Stable spiculated right hilar/perihilar mass, consistent with treated malignancy. Reviewed, dictated and finalized at location B. CONNECTOR REPAIRER IMPRESSION: 1. New left upper lobe nodule measuring 5 mm. Given the history of lung cancer, metastatic disease cannot be excluded. Recommend follow-up low dose CT chest i n 3 months. 2: Stable spiculated right hilar/perihilar mass, consistent with treated malign husam.
[2023-08-25 10:22] LABS: Estimated Glomerular Filt Rate 60
== END 2023-08-25 10:03 | disposition home or self-care (01) ==
PROVIDERS: PCP Family Medicine; Visit Provider Internal Medicine Hematology & Oncology
DX: C34.90 Malignant neoplasm of unspecified part of unspecified bronchus or lung (principal); R91.1 Solitary pulmonary nodule
CPT/HCPCS: 71260; Q9967

== ENCOUNTER 2023-09-13 10:50 | Inpatient (IN) | payer MEDICARE, MEDICAID, SELFPAY ==
[2023-09-13] VITALS (34 sets, daily range): BP systolic 105–138; BP diastolic 41–98; PULSE 90–130; RESP 15–32; TEMP 36.3–36.6; O2SAT 85–100; BMI 31.1
--- NOTE | ~2023-09-13 | XR_ITS ---
XR chest 1V portable DATE: 09/13/2023 11:40 INDICATION: Increasing shortness of breath and cough today. History of COPD, lung cancer TECHNIQUE: Portable AP chest on 09/13/2023 at 1142 hours COMPARISON: 08/25/2023 CT chest FINDINGS: There is patchy infiltrate in the right mid and particularly right lower lung zones, sugges ting pneumonia or less likely aspiration pneumonitis. Bilateral hyperinflation, left greater than right. Left Port-A-Cath catheter tip is situated near the superior cavoatrial junction. Aortic arch calcification. IMPRESSION: Patchy right mid and particularly lower lung infiltrate, suggesting pneumonia Reviewed, dictated and finalized at location A. RVISOR SPEECH
--- NOTE | ~2023-09-13 | CT_ITS ---
EXAMINATION: CTA chest PE protocol DATE: 09/13/2023 13:02 INDICATION: Shortness of breath. Elevated d-dimer. History of COPD. History of lung cancer. TECHNIQUE: Computed tomography angiography (CTA) of the chest was performed with 100 mL Omnipaque-350 intravenous contrast timed to evaluate the pulmonary arteries. Coronal maximum intensity projection 3D-reconstructions were created by the technologist. Automated exposure control and iterative reconst ruction technique were employed. Exam dose: 563.15 mGy-cm total exam DLP. COMPARISON: 09/13/2023 portable AP chest 08/2023 CT chest FINDINGS: Left Port-A-Cath is noted. There is diagnostic contrast enhancement of the pulmonary arteries and no evidence of pulmonary embol ism. Normal heart size. No pericardial or pleural effusion. There is atherosclerotic change of the thoraci c aorta and coronary artery and great vessel calcifications. No thoracic aortic aneurysm or dissectio n is detected.. No hilar or mediastinal mass lesion or lymphadenopathy. There is bullous emphysematous change of the lungs. Approximately 4 or 5 mm nodular density is again noted in the left upper lobe laterally (series 4 mario ges 54, 55). There is extensive patchy infiltrate in the right lower lobe and to exclude lesser extent the right u pper and middle lobes. Right prominent lower lobe calcified pulmonary granuloma Posterior ununited right 11th rib fracture. Severe degenerative disc disease at C6-7. IMPRESSION: Patchy infiltrate of right upper and middle lobes and to a much greater extent right low er lobe, suggesting pneumonia Bullous emphysema No evidence of pulmonary embolism Nonspecific 4 5 mm left upper lobe nodular density Left Port-A-Cath Reviewed, dictated and finalized at Location [facility]. Reviewed, dictated and finalized at location A. OTECHNICAL SPECIALIST IMPRESSION: Patchy infiltrate of right upper and middle lobes and to a much gr eater extent right lower lobe, suggesting pneumonia Bullous emphysema No evidence of pulmonary embolism Nonspecific 4 5 mm left upper lobe nodular density Left Port-A-Cath
--- NOTE | 2023-09-13 11:12 | ECG_ITS ---
Measurements Intervals [place] Rate: 125 P: 74 OR: 170 QRS: 60 QRSD: 79 T: 78 QT: 288 QTc: 416 Interpretive Statements SINUS TACHYCARDIA ABNORMAL RHYTHM ECG COMPARED TO ECG 02/18/2023 10:20:38 SINUS TACHYCARDIA NOW PRESENT Electronically Signed On 09-13-2023 19:57:10 COMMUNITY SERVICE WORKER by Yajaira Hopkins M.D.
[2023-09-13] MEDS: IPRATROPIUM 0.5 MG/ALBUTEROL SULFATE 2.5 MG AMPUL.NEB 3 ML INHALATION ×3 (11:21→23:38)
[2023-09-13] MEDS: methylPREDNISolone SOD SUCC 125 MG VIAL IV PUSH (11:22)
[2023-09-13 11:47] LABS: Basophils Absolute Auto 0.01 K/mm3 (0.00-0.10); Basophils Percent Auto 0.1 % (0.0-1.0); Eosinophils Absolute Auto 0.04 K/mm3 (0.02-0.50); Eosinophils Percent Auto 0.4 % (1.0-6.0); Hematocrit 39.3 % (37.0-46.0); Hemoglobin 12.9 g/dL (12.4-15.3); Immature Granulocyte Absolute 0.04 K/mm3 (0.00-0.00); Immature Granulocyte Percent A 0.4 % (0.0-0.0); Lymphocytes Absolute Auto 0.35 K/mm3 (1.10-4.50); Lymphocytes Percent Auto 3.4 % (18.0-42.0); Mean Corpuscular HGB Conc 32.8 g/dL (32.0-36.0); Mean Corpuscular Volume 97.5 fL (78.0-102.0); Mean Platelet Volume 10.5 fl (8.7-11.0); Monocytes Absolute Auto 0.65 K/mm3 (0.10-0.90); Monocytes Percent Auto 6.4 % (2.0-11.0); Neutrophils Absolute Auto 9.1 K/mm3 (1.7-7.2); Neutrophils Percent Auto 89.3 % (50.0-70.0); Platelet Count Result 211 K/mm3 (150-420); Red Blood Count 4.03 M/mm3 (4.70-6.10); Red Cell Distribution Width 14.2 % (11.6-14.4); White Blood Count 10.2 K/mm3 (4.8-10.8)
[2023-09-13 11:58] LABS: INR 0.9; Partial Thromboplastin Time 29.7 SEC (23.90-30.70); Prothrombin Time 10.3 Seconds (9.50-12.10)
[2023-09-13 12:01] LABS: D Dimer 1.91 mg/L (0.19-0.50)
[2023-09-13 12:02] LABS: Base Excess ABG -3.9 mmol/L (0-2); Device NASAL CANNULA; Lactic Acid Reflex 1.6 mmol/L (0.4-2.0); Modified Allen's Test Pass; Oxygen Content ABG 17.3 %vol (16.0-22.0); Oxygen Saturation ABG 92.7 % (95-97); Oxyhemoglobin 91.6 % (94-100); PCO2 ABG 28.8 mmHg (35-45); PO2 ABG 62.7 mmHg (75-85); Site Drawn RIGHT RADIAL; Total Hemoglobin 13.4 g/dL (12.0-18.0); pH ABG 7.44 (7.35-7.45)
[2023-09-13 12:13] LABS: Alanine Aminotransferase 33 U/L (16-63); Alkaline Phosphatase 72 U/L (46-116); Anion Gap 6 mmol/L (8-16); Aspartate Amino Transferase 31 U/L (15-37); Bilirubin,Total 0.5 mg/dL (0.00-1.00); Blood Urea Nitrogen 34 mg/dL (7-18); Calcium 9.2 mg/dL (8.5-10.1); Carbon Dioxide 29 mmol/L (21-32); Chloride 102 mmol/L (98-108); Estimated Glomerular Filt Rate 37; Glucose 112 mg/dL (70-99); NT Pro B Type Natriuretic Pept 510 pg/mL (0-125); Osmolality Calculated 292 mOsm/kg (285-295); Sodium 137 mmol/L (136-145); Total Protein 7.3 g/dL (6.4-8.2)
[2023-09-13 12:16] LABS: Troponin I 19.4 ng/L (0.00-60.4)
[2023-09-13] MEDS: SODIUM CHLORIDE 0.9% IV 1,000 ML 999 ML IV CONT (13:18)
[2023-09-13 14:52] LABS: Appearance Urine Clear (Clear); Bilirubin Urine Negative (Negative); Blood Urine Negative (Negative); Color Urine Light Yellow (Yellow); Glucose Urine UA Negative (Negative); Ketones Urine Negative (Negative); Leukocyte Esterase Ur Negative LEU/UL (Negative); Nitrate Urine Negative (Negative); Protein Urine Trace (Negative); Urobilinogen Urine 0.2 mg/dL (0.2-1.0)
[2023-09-13 15:03] LABS: Add Urine Microscopic? YES; Amorphous Sediment Urine Few
[2023-09-13 15:04] LABS: Mucus Urine Rare /lpf
--- NOTE | 2023-09-13 15:22 | ED.SOB ---
HPI - SOB/Dyspnea General Chief Complaint: Shortness of Breath/Dyspnea Stated Complaint: SOB Time Seen by Provider: 09/13/23 10:52 Source: patient and EMS Limitations: no limitations History of Present Illness HPI Narrative: this is a 73-year-old male history lung cancer sees Oncology and receives radiation treatment history of COPD peripheral vascular disease has some bilateral above amputations, and is a current smoker presents via EMS with shortness of breath with no fever chills no chest pain no abdominal pain no nausea vomiting. MD elicited complaint: shortness of breath Pertinent past history: COPD and other ( history of lung cancer) Onset (ago): day(s) Related Data Home Medications Medication Instructions Recorded Confirmed docusate sodium 100 mg capsule 100 mg PO DAILY 09/22/19 09/13/23 multivit with minerals-iron 18 1 tablet PO DAILY 09/22/19 09/13/23 mg-folic ac 400 mcg-vit K 25 mcg tablet (Adults Multivitamin) saw palm 160 mg-vit E 100 1 tablet PO DAILY 09/22/19 09/13/23 unit-selen 100 wgy-ucsp-bcrlvb-pygeum tablet (Prostate Health) loratadine 10 mg tablet 10 mg PO DAILY 04/25/23 09/13/23 albuterol sulfate 90 mcg/actuation 2 inh inhalation Q4-6H PRN 09/13/23 09/13/23 aerosol inhaler Shortness Of Breath atorvastatin 80 mg tablet 80 mg PO HS 09/13/23 09/13/23 bupropion HCl 100 mg tablet 100 mg PO BID 09/13/23 09/13/23 clopidogrel 75 mg tablet 75 mg PO DAILY 09/13/23 09/13/23 duloxetine 30 mg capsule,delayed 30 mg PO BID 09/13/23 09/13/23 release famotidine 20 mg tablet 40 mg PO DAILY 09/13/23 09/13/23 fluticasone fur. 200 mcg-umeclid 1 inh inhalation DAILY 09/13/23 09/13/23 62.5 mcg-vilant 25 mcg inhalat.powder (Trelegy Ellipta) pantoprazole 20 mg tablet,delayed 20 mg PO DAILY 09/13/23 09/13/23 release propranolol 40 mg tablet 40 mg PO BID 09/13/23 09/13/23 Allergies Allergy/AdvReac Type Severity Reaction Status Date / Time morphine Allergy Intermediate Hypotension Verified 09/13/23 11:10 and Hallucinations Review of Systems Review of Systems: All systems reviewed & are unremarkable except as noted in HPI and below PMFSH Past Medical History Medical History COPD (chronic obstructive pulmonary disease) CVA (cerebral vascular accident) GERD (gastroesophageal reflux disease) Glaucoma Hyperlipidemia Hypertension Lung cancer Nicotine dependence Phantom pain after amputation of lower extremity Surgical History Surgical History History of below-knee amputation of both lower extremities S/P femoral-popliteal bypass surgery Social History Social History Smoking packs per day: 1 Smoking cigarettes per day: 20.0 Years smoked: 57 Smoking pack-years: 57.00 Smoking status: Current every day smoker Tobacco type: cigarettes Additional smoking assessment comments: down to 1/2 pack currently Substance use: current Substance use type: marijuana Lack of Transportation: No Lack of Food: Never True Current Housing: I Have Housing Concerned About Future Housing: No Difficulty Paying Gas/Electric Bills: YES Difficulty Paying for Meds: No Currently Unemployed: No Education: Trade/Vocational Certificate Difficulty w/ Childcare or Family Care: No Living arrangements: with family Additional living arrangements comments: . 2 Children. 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
[2023-09-13] MEDS: AZITHROMYCIN 500 MG/NS 250 ML 500 MG/250 ML BAG 250 MG IVPB (16:30)
[2023-09-13] MEDS: CARBIDOPA/LEVODOPA 10/100 MG TABLET 1 TABLET PO (18:28)
--- NOTE | 2023-09-13 18:50 | ADMGEN ---
This patient, Denise Westbrook, was admitted to 2nd Floor Room 204-2. Patient/family oriented to hospital policies and general routines including ID bracelet, bed and alarms, visiting hours, pain management, procedures, bathroom and other care routines, personal items, smoking policy, room service/diet, and visiting hours. Information on how to activate the Rapid Response Team has been discussed. Patient/Family are encouraged to report perceived risks to care and to ask questions if they do not understand what they are told or what they should do.
[2023-09-13] MEDS: ATORVASTATIN 40 MG TABLET 80 MG PO (20:47)
[2023-09-13] MEDS: PROPRANOLOL HCL 20 MG TABLET 40 MG PO (20:47)
[2023-09-14] VITALS (14 sets, daily range): BP systolic 117–122; BP diastolic 46–58; PULSE 88–105; RESP 16–18; TEMP 36.2–36.7; O2SAT 91–98
[2023-09-14] MEDS: cefTRIAXone 2 GM/NS 100 ML 2 GM/100 ML BAG IVPB (04:01)
--- NOTE | 2023-09-14 05:02 | PC.NURSE ---
Patient slept well last night. Patient used the urinal independently. Vitals were WNL. His pulse ox was typically around 95%.
[2023-09-14] MEDS: IPRATROPIUM 0.5 MG/ALBUTEROL SULFATE 2.5 MG AMPUL.NEB 3 ML INHALATION (05:19)
[2023-09-14 06:57] LABS: Basophils Absolute Auto 0.01 K/mm3 (0.00-0.10); Basophils Percent Auto 0.1 % (0.0-1.0); Hematocrit 29.7 % (37.0-46.0); Hemoglobin 9.9 g/dL (12.4-15.3); Immature Granulocyte Absolute 0.08 K/mm3 (0.00-0.00); Immature Granulocyte Percent A 0.7 % (0.0-0.0); Lymphocytes Absolute Auto 0.66 K/mm3 (1.10-4.50); Lymphocytes Percent Auto 5.4 % (18.0-42.0); Mean Corpuscular HGB Conc 33.3 g/dL (32.0-36.0); Mean Corpuscular Hemoglobin 32.5 pg (27.0-31.0); Mean Corpuscular Volume 97.4 fL (78.0-102.0); Mean Platelet Volume 10.3 fl (8.7-11.0); Monocytes Absolute Auto 0.99 K/mm3 (0.10-0.90); Neutrophils Absolute Auto 10.6 K/mm3 (1.7-7.2); Neutrophils Percent Auto 85.8 % (50.0-70.0); Platelet Count Result 172 K/mm3 (150-420); Red Blood Count 3.05 M/mm3 (4.70-6.10); Red Cell Distribution Width 14.5 % (11.6-14.4); White Blood Count 12.3 K/mm3 (4.8-10.8)
[2023-09-14 07:18] LABS: Alanine Aminotransferase 17 U/L (16-63); Albumin Level 2.4 g/dL (3.4-5.0); Alkaline Phosphatase 49 U/L (46-116); Anion Gap 6 mmol/L (8-16); Aspartate Amino Transferase 18 U/L (15-37); Bilirubin,Total 0.2 mg/dL (0.00-1.00); Blood Urea Nitrogen 24 mg/dL (7-18); Calcium 8.3 mg/dL (8.5-10.1); Carbon Dioxide 27 mmol/L (21-32); Chloride 104 mmol/L (98-108); Estimated Glomerular Filt Rate 53; Glucose 120 mg/dL (70-99); Magnesium 2.1 mg/dL (1.8-2.4); Osmolality Calculated 289 mOsm/kg (285-295); Potassium 4.1 mmol/L (3.5-5.1); Sodium 137 mmol/L (136-145); Total Protein 6.1 g/dL (6.4-8.2)
[2023-09-14] MEDS: FLUTICASONE/UMECLIDIN/VILANTER 100-62.5-25 MCG ELLIPTA 1 PUFF INHALATION (09:31)
[2023-09-14] MEDS: CARBIDOPA/LEVODOPA 10/100 MG TABLET 1 TABLET PO ×3 (09:31→17:32)
[2023-09-14] MEDS: PROPRANOLOL HCL 20 MG TABLET 40 MG PO ×2 (09:32→21:11)
[2023-09-14] MEDS: LORATADINE 10 MG TABLET PO (09:32)
[2023-09-14] MEDS: ASPIRIN 81 MG ENTERIC TABLET PO (09:33)
[2023-09-14] MEDS: DULoxetine HCL 30 MG CAPSULE.DR PO ×2 (09:33→21:04)
[2023-09-14] MEDS: MULTIVITAMINS THERAPEUTIC TAB (*BKC) 1 TABLET PO (09:33)
[2023-09-14] MEDS: CLOPIDOGREL BISULFATE 75 MG TABLET PO (09:33)
[2023-09-14] MEDS: AZITHROMYCIN 250 MG TABLET 500 MG PO (09:34)
[2023-09-14] MEDS: PANTOPRAZOLE SOD SESQUIHYDRATE 20 MG TAB PO (09:34)
[2023-09-14] MEDS: FAMOTIDINE 20 MG TABLET 40 MG PO (09:34)
--- NOTE | 2023-09-14 10:18 | PM.IMHP ---
H&P: HPI History of Present Illness Date/Time: 09/14/23 10:18 Chief Complaint: COPD Exacerbation Narrative: This is a 73 year old male who has a PMH of neoplasm of the upper lobe and recieving radition and has had a stroke. Patient is a bilateral leg amputation above the knee, phatom pain hypertension, and depression. He was admitted to the hosptial with shortness of breath and requring oxygen he is a daily smoker. At this time we will continue to attempt to wean patient off of oxygen and plan for possible discharge in the morning. Patient has a left Danelle Cath in his chest .We will continue to monitor breathing treatment and antibiotics. Patient denies any pain, nausea and or vomiting at this time. Review of Systems Review of Systems: Shortness of breath All systems reviewed & are unremarkable except as noted in HPI and below PMFSH Past Medical History Medical History COPD (chronic obstructive pulmonary disease) CVA (cerebral vascular accident) GERD (gastroesophageal reflux disease) Glaucoma Hyperlipidemia Hypertension Lung cancer Nicotine dependence Phantom pain after amputation of lower extremity Surgical History Surgical History History of below-knee amputation of both lower extremities S/P femoral-popliteal bypass surgery Social History Social History Smoking packs per day: 0.25 Smoking cigarettes per day: 5.0 Years smoked: 60 Smoking pack-years: 15.00 Smoking status: Current every day smoker Tobacco type: cigarettes Additional smoking assessment comments: down to 1/2 pack currently Alcohol intake: never Substance use: current Substance use type: marijuana Do You Feel Safe in your Home?: Yes Lack of Transportation: No Lack of Food: Never True Current Housing: I Have Housing Concerned About Future Housing: No Difficulty Paying Gas/Electric Bills: No Difficulty Paying for Meds: No Currently Unemployed: No Education: Trade/Vocational Certificate Difficulty w/ Childcare or Family Care: No Living arrangements: with family Additional living arrangements comments: . 2 Children. 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 Spiritual care concerns: No Meds Home Medications and Allergies Home Medications Medication Instructions Recorded Confirmed Type docusate sodium 100 mg capsule 100 mg PO DAILY 09/22/19 09/13/23 History multivit with minerals-iron 18 1 tablet PO DAILY 09/22/19 09/13/23 History mg-folic ac 400 mcg-vit K 25 mcg tablet (Adults Multivitamin) saw palm 160 mg-vit E 100 1 tablet PO DAILY 09/22/19 09/13/23 History unit-selen 100 uyj-chby-ukdnrc-pygeum tablet (Prostate Health) loratadine 10 mg tablet 10 mg PO DAILY 04/25/23 09/13/23 History aspirin 81 mg tablet,delayed 81 mg PO DAILY #90 tabs 05/07/23 09/13/23 Rx release pregabalin 225 mg capsule (Lyrica) 225 mg PO BID #60 caps 08/13/23 09/13/23 Rx carbidopa 10 mg-levodopa 100 mg 1 tablet PO TID #90 tabs 08/20/23 09/13/23 Rx tablet hydrocodone 5 mg-acetaminophen 325 1 tablet PO Q8H PRN pain #90 tabs 08/20/23 09/13/23 Rx mg tablet atorvastatin 80 mg tablet 80 mg PO HS 09/13/23 09/13/23 History bupropion HCl 100 mg tablet 100 mg PO BID 09/13/23 09/13/23 History clopidogrel 75 mg tablet 75 mg PO DAILY 09/13/23 09/13/23 History duloxetine 30 mg capsule,delayed 30 mg PO BID 09/13/23 09/13/23 History release famotidine 20 mg tablet 40 mg PO DAILY 09/13/23 09/13/23 History fluticasone fur. 200 mcg-umeclid 1 inh inhalation DAILY 09/13/23 09/13/23 History 62.5 mcg-vilant 25 mcg inhalat.powder (Trelegy Ellipta) pantoprazole 20 mg tablet,delayed 20 mg PO DAILY 09/13/23 09/13/23 History release propranolol 40 mg tablet 40 mg PO
--- NOTE | 2023-09-14 12:27 | PHAR ---
The patient's home med of buPROPion HCL 100 MG TABLET has been verified.
[2023-09-14] MEDS: LEVALBUTEROL NEB 1.25 MG/3 ML INHALATION ×3 (13:30→23:44)
[2023-09-14] MEDS: ATORVASTATIN 40 MG TABLET 80 MG PO (21:04)
[2023-09-15] VITALS (7 sets, daily range): BP systolic 116–125; BP diastolic 46–67; PULSE 82–93; RESP 16–20; TEMP 36.3–36.7; O2SAT 92–96
[2023-09-15] MEDS: cefTRIAXone 2 GM/NS 100 ML 2 GM/100 ML BAG IVPB (04:30)
[2023-09-15] MEDS: LEVALBUTEROL NEB 1.25 MG/3 ML INHALATION ×2 (05:15→11:58)
[2023-09-15 05:32] LABS: Procalcitonin 10.7 ng/mL
[2023-09-15 06:08] LABS: MRSA (PCR) NOT DETECTED (NOT DETECTE)
[2023-09-15 06:10] LABS: Basophils Absolute Auto 0.03 K/mm3 (0.00-0.10); Basophils Percent Auto 0.3 % (0.0-1.0); Eosinophils Absolute Auto 0.05 K/mm3 (0.02-0.50); Eosinophils Percent Auto 0.5 % (1.0-6.0); Immature Granulocyte Absolute 0.04 K/mm3 (0.00-0.00); Immature Granulocyte Percent A 0.4 % (0.0-0.0); Lymphocytes Absolute Auto 1.07 K/mm3 (1.10-4.50); Lymphocytes Percent Auto 11.1 % (18.0-42.0); Mean Corpuscular HGB Conc 33.3 g/dL (32.0-36.0); Mean Corpuscular Hemoglobin 32.4 pg (27.0-31.0); Mean Corpuscular Volume 97.1 fL (78.0-102.0); Mean Platelet Volume 10.6 fl (8.7-11.0); Monocytes Absolute Auto 1.03 K/mm3 (0.10-0.90); Monocytes Percent Auto 10.7 % (2.0-11.0); Neutrophils Absolute Auto 7.4 K/mm3 (1.7-7.2); Platelet Count Result 191 K/mm3 (150-420); Red Cell Distribution Width 14.4 % (11.6-14.4); White Blood Count 9.6 K/mm3 (4.8-10.8)
[2023-09-15 06:13] LABS: Alanine Aminotransferase 25 U/L (16-63); Albumin Level 2.7 g/dL (3.4-5.0); Alkaline Phosphatase 56 U/L (46-116); Anion Gap 8 mmol/L (8-16); Aspartate Amino Transferase 24 U/L (15-37); Bilirubin,Total 0.5 mg/dL (0.00-1.00); Blood Urea Nitrogen 18 mg/dL (7-18); Calcium 9.1 mg/dL (8.5-10.1); Carbon Dioxide 27 mmol/L (21-32); Chloride 103 mmol/L (98-108); Estimated Glomerular Filt Rate 54; Glucose 95 mg/dL (70-99); Osmolality Calculated 287 mOsm/kg (285-295); Potassium 3.9 mmol/L (3.5-5.1); Sodium 138 mmol/L (136-145); Total Protein 6.7 g/dL (6.4-8.2)
[2023-09-15] MEDS: FLUTICASONE/UMECLIDIN/VILANTER 100-62.5-25 MCG ELLIPTA 1 PUFF INHALATION (09:31)
[2023-09-15] MEDS: PROPRANOLOL HCL 20 MG TABLET 40 MG PO (09:32)
[2023-09-15] MEDS: CARBIDOPA/LEVODOPA 10/100 MG TABLET 1 TABLET PO (09:33)
[2023-09-15] MEDS: DULoxetine HCL 30 MG CAPSULE.DR PO (09:33)
[2023-09-15] MEDS: AZITHROMYCIN 250 MG TABLET 500 MG PO (09:33)
[2023-09-15] MEDS: LORATADINE 10 MG TABLET PO (09:34)
[2023-09-15] MEDS: ASPIRIN 81 MG ENTERIC TABLET PO (09:34)
[2023-09-15] MEDS: PANTOPRAZOLE SOD SESQUIHYDRATE 20 MG TAB PO (09:34)
[2023-09-15] MEDS: CLOPIDOGREL BISULFATE 75 MG TABLET PO (09:34)
[2023-09-15] MEDS: MULTIVITAMINS THERAPEUTIC TAB (*BKC) 1 TABLET PO (09:34)
[2023-09-15] MEDS: FAMOTIDINE 20 MG TABLET 40 MG PO (09:34)
--- NOTE | 2023-09-15 10:47 | PM.DS ---
DS: Admitting Diagnosis Discharge Date 09/15/2023 Admitting Diagnosis Pneumonia, Cancer lungs , Hypoxia DS: Discharge Diagnosis Discharge Diagnosis (1) Lung cancer: Qualifiers: Laterality: unspecified laterality Lung location: unspecified part of lung Qualified Code(s): C34.90 - Malignant neoplasm of unspecified part of unspecified bronchus or lung Code(s): C34.90 - Malignant neoplasm of unspecified part of unspecified bronchus or lung Status: Acute Assessment and Plan: -continue home medication patient will follow oncologist plan of care (2) COPD (chronic obstructive pulmonary disease): Qualifiers: COPD type: unspecified COPD Qualified Code(s): J44.9 - Chronic obstructive pulmonary disease, unspecified Code(s): J44.9 - Chronic obstructive pulmonary disease, unspecified Status: Acute Assessment and Plan: breathing treatment IV antibiotics oxygen smoking cessation pulse ox q shitf (3) Tobacco abuse: Code(s): Z72.0 - Tobacco use Status: Acute Assessment and Plan: smoking cessation nicotine patch DS: Summary Hospital Course Reason for hospitalization: Pneumonia, Cancer lung Hospital Course: Mr. Westbrook has been admitted to hospital due to pneumonia Initially he was required oxygen but has been gradually taken off it. He has recieved intravenous medication Azitrhomycin and rocephin, as well Nebulizer treatments an replenishment of electrolytes. additionally he was given IV steroids. Patient has been on the side of bed eating and drinking without any difficulties. He has continued to engage in activities of daily living. Although has slightly course lungs osunds, he is stable enough to be discharged home. The patient most recent vitals signs were blood pressure 122/54, pulse 90 respiratory rate of 18 and pulse oxygen 96% on room air. Patient will be discharge with oral antibiotics and will follow up with Primary care provider. Time Spent with Patient Time attestation: Total time spent providing and/or coordinating discharge services: Exam Const: General: comfortable and no acute distress Eyes: General: appearance normal, both eyes and all related structures Pupils: Equal, round and reactive pupils present Resp: Effort & Inspection: normal respiratory effort Auscultation: diminished lung sounds Cardio: Rate: regular rate Skin: General skin exam: normal color Neuro: Cranial nerves: Yes Equal, round and reactive pupils present Speech: normal speech Extrem: General: normal to inspection Other: bilateral above knee amputee Psych: Mental Status: mental status grossly normal Affect: normal affect DS: Data Data Completed and Pending Labs on day of discharge: Labs from last 24 hours 09/15/23 09/14/23 05:51 06:38 WBC 9.6 RBC 3.40 L Hgb 11.0 L Hct 33.0 L MCV 97.1 MCH 32.4 H MCHC 33.3 RDW 14.4 Plt Count 191 MPV 10.6 Immature Gran % (Auto) 0.4 H Neut % (Auto) 77.0 H Lymph % (Auto) 11.1 L Mcmullen % (Auto) 10.7 Eos % (Auto) 0.5 L Baso % (Auto) 0.3 Lymph # (Auto) 1.07 L Mcmullen # (Auto) 1.03 H Eos # (Auto) 0.05 Baso # (Auto) 0.03 Abs Immat Gran (auto) 0.04 H Absolute Neuts (auto) 7.4 H Absolute Nucleated RBC 0.00 Nucleated RBC % 0.0 Sodium 138 Potassium 3.9 Chloride 103 Carbon Dioxide 27 Anion Gap 8 BUN 18 Creatinine 1.30 Estim Creat Clear Calc Not Reportable Estimated GFR 54 L Glucose 95 Calculated Osmolality 287 Calcium 9.1 Magnesium 2.0 Total Bilirubin 0.5 AST 24 ALT 25 Alkaline Phosphatase 56 Total Protein 6.7 Albumin 2.7 L Procalcitonin 10.7 Nasal MRSA (PCR) Not detected Discharge Plan Discharge Attending physician on discharge: Dale Escobar Discharging Clinician: Akhil Romero Anticipated Discharge Date/Time: 09/15/23 10:42 Patient Disposition: Home, Self-Care
--- NOTE | 2023-09-16 09:00 | PC.NURSE ---
Discharge call back completed, doing ok some diarrhea last night, to call for appointment for follow up today, did receive DC instructions, no questions or concerns
== END 2023-09-15 12:10 | disposition home or self-care (01) | DRG 194 ==
LOC: CHSED 15:43 → CHS2ND 16:09
PROVIDERS: Nurse Practitioner; Admitting Provider Internal Medicine; Emergency Provider Emergency Medicine; PCP Family Medicine; Visit Provider Internal Medicine
DX: J18.9 Pneumonia, unspecified organism (principal); C34.12 Malignant neoplasm of upper lobe, left bronchus or lung; J44.0 Chronic obstructive pulmonary disease with (acute) lower respiratory infection; I12.9 Hypertensive chronic kidney disease with stage 1 through stage 4 chronic kidney disease, or unspecified chronic kidney disease; N18.9 Chronic kidney disease, unspecified; E78.5 Hyperlipidemia, unspecified; K21.9 Gastro-esophageal reflux disease without esophagitis; H40.9 Unspecified glaucoma; F17.210 Nicotine dependence, cigarettes, uncomplicated; G54.6 Phantom limb syndrome with pain; Z89.512 Acquired absence of left leg below knee; Z89.511 Acquired absence of right leg below knee; Z86.73 Personal history of transient ischemic attack (TIA), and cerebral infarction without residual deficits
CPT/HCPCS: 36415; 36600; 71045; 71275; 80053; 81001; 82805; 83605; 83735; 83880; 84145; 84484; 85025; 85380; 85610; 85730; 87040; 87070; 87205; 87581; 87641; 93005; 94640; A9270; G0378; J0456; J0696; J2930; J7030; Q9967

== ENCOUNTER 2023-10-31 09:48 | Outpatient (CLI) | payer MEDICARE, MEDICAID, SELFPAY ==
--- NOTE | ~2023-10-31 | CT_ITS ---
Clinical Indication: Lung cancer CT Scan of the Chest with Contrast: Technique: Contiguous sections were acquired throughout the chest after intravenous administration of 75 cc of Omnipaque 350. Dose reduction technique was used on this scan by utilizing automated exposu re control and iterative reconstruction technique. The dose-length product (DLP) was 177.12 mGy-cm. COMPARISON: 09/13/2023 Findings: There is no evidence of any significant mediastinal, hilar or axillary lymphadenopathy. There is no f illing defect in the pulmonary arterial tree to suggest pulmonary embolus. There is no evidence of ao rtic dissection or aneurysm. There is no evidence of pleural or pericardial effusion. There is mild thickening in the right perihilar region/hilar region, which could reflect postradiatio n change. 7 mm right upper lobe pulmonary nodule noted (axial image 59), slightly more confluent defi shazia as compared to prior exam. There is an additional 3 mm right middle lobe pulmonary nodule. Calcif ied right lower lobe granuloma present. There is patchy opacity in the right lung base, mildly improv ed from prior exam, which could reflect postinflammatory change or residual pneumonia. There is moder ate emphysema, especially the upper lobes. Stable 4 mm left upper lobe pulmonary nodule. Images through the upper abdomen reveal no abnormalities. Impression: Thickening in the right hilar/perihilar region, which could reflect posttreatment change/postradiatio n change. Mildly improving patchy opacity in the right lower lobe could reflect improving pneumonia and/or post inflammatory change. Several subcentimeter pulmonary nodules, as above, indeterminate. Moderate emphysema. Reviewed, dictated and finalized at [facility]. NG CAPTAIN Impression: Thickening in the right hilar/perihilar region, which could reflect posttreatme nt change/postradiation change. Mildly improving patchy opacity in the right lower lobe could reflect improving pneumonia and/or postinflammatory change. Several subcentimeter pulmonary nodules, as above, indeterminate. Moderate emphysema.
[2023-10-31 10:32] LABS: Estimated Glomerular Filt Rate 50
== END 2023-10-31 09:49 | disposition home or self-care (01) ==
PROVIDERS: PCP Family Medicine; Visit Provider Internal Medicine Hematology & Oncology
DX: C34.90 Malignant neoplasm of unspecified part of unspecified bronchus or lung (principal); J43.9 Emphysema, unspecified
CPT/HCPCS: 71260; Q9967

== ENCOUNTER 2023-11-21 12:42 | Emergency (ER) | payer MEDICARE, MEDICAID, SELFPAY ==
[2023-11-21] VITALS (27 sets, daily range): BP systolic 91–138; BP diastolic 45–71; PULSE 72–87; RESP 18–22; TEMP 36.8; O2SAT 95–100
--- NOTE | ~2023-11-21 | XR_ITS ---
EXAMINATION: XR chest 2V DATE: 11/21/2023 13:40 INDICATION: Shortness of breath. Confusion. TECHNIQUE: Frontal and lateral views of the chest were obtained. COMPARISON: Chest one view 09/13/2023, chest CT 10/31/2023 FINDINGS: There is volume loss in right hemithorax. There are airspace opacities in right mid and low er lung zones. A calcified right lung nodule is consistent with old granulomatous disease. There are lucencies in the lungs, consistent with emphysema. No pleural effusion or pneumothorax. The heart siz e is normal. There is a left internal jugular port with tip in proximal right atrium. IMPRESSION: 1. Stable airspace opacities in right mid and lower lung zones, consistent with pneumonia and/or radi ation pneumonitis. 2. Emphysema. Reviewed, dictated and finalized at location A. ASTRUCTURE ENGINEER IMPRESSION: 1. Stable airspace opacities in right mid and lower lung zones, consistent with pneumonia and/or radiation pneumonitis. 2. Emphysema.
--- NOTE | ~2023-11-21 | CT_ITS ---
EXAMINATION:CT diagnostic chest wo con DATE: 11/21/2023 14:31 INDICATION: Shortness of breath. TECHNIQUE: Computed tomography (CT) of the chest was performed without intravenous contrast. Automate d exposure control and iterative reconstruction technique were employed. The dose-length product (DLP ) was 365.43 mGy-cm. COMPARISON: Chest CT 10/31/2023 FINDINGS: There is moderate emphysema. There are patchy airspace and groundglass opacities in right m iddle lobe, right lower lobe, and posterior segment right upper lobe. There is a 2.7 x 2.6 cm mass at the right hilum. There is mild atelectasis in left lung. A calcified right lung nodule and calcified right hilar lymph nodes are consistent with old granulomatous disease. There is a trace right pleura l effusion. The heart size is normal. There are coronary artery calcifications. No pericardial effusi on. There is a left internal jugular port with tip in proximal right atrium. Calcifications in the sp mark are consistent with old granulomatous disease. There is an old fracture of right 11th rib. There is moderate thoracic spondylosis. IMPRESSION: 1. Stable right hilar mass, consistent with primary bronchogenic carcinoma and changes of radiation t herapy. 2. Worsened airspace and groundglass opacities in right lung, worst in right lower lobe, consistent w ith pneumonia. 3. Moderate emphysema. Reviewed, dictated and finalized at location A. KEEPER IMPRESSION: 1. Stable right hilar mass, consistent with primary bronchogenic carcinoma and changes of radiation therapy. 2. Worsened airspace and groundglass opacities in right lung, worst in right lo wer lobe, consistent with pneumonia. 3. Moderate emphysema.
--- NOTE | ~2023-11-21 | CT_ITS ---
EXAMINATION: CT brain wo con DATE: 11/21/2023 13:40 INDICATION: Altered mental status. TECHNIQUE: Computed tomography (CT) of the head was performed without intravenous contrast. The mA wa s adjusted according to patient size. Iterative reconstruction technique was employed. The dose-lengt h product was 681.00 mGy-cm. COMPARISON: Head CT 11/30/2006 FINDINGS: There is a small old infarct in right cerebellum. There is an old infarct involving left fr ontotemporal parietal region. There is an old infarct involving right temporal occipital region. Ther e are scattered areas of low attenuation in the cerebral white matter. There are old infarcts in the bilateral basal ganglia. There is no intracranial hemorrhage, acute infarction, or abnormal intracran ial mass lesion. The ventricles are normal in size. There is mild mucosal thickening in the ethmoid s inuses. The orbits are normal. There is a small left mastoid effusion. IMPRESSION: 1. Old infarcts in the brain. 2. Moderate nonspecific cerebral white matter disease, which likely represents chronic small vessel i schemic disease. Reviewed, dictated and finalized at location [facility]. E REVIEWER IMPRESSION: 1. Old infarcts in the brain. 2. Moderate nonspecific cerebral white matter disease, which likely represents chronic small vessel ischemic disease.
--- NOTE | 2023-11-21 12:46 | ECG_ITS ---
Measurements Intervals [place] Rate: 84 P: 73 HI: 170 QRS: 73 QRSD: 101 T: 74 QT: 345 QTc: 408 Interpretive Statements SINUS RHYTHM NORMAL ECG COMPARED TO ECG 09/13/2023 11:47:09 SINUS RHYTHM NOW PRESENT Electronically Signed On 11-21-2023 13:59:48 MANAGER VEHICLE by Jamison Turcios D.O.
[2023-11-21 13:18] LABS: Basophils Absolute Auto 0.02 K/mm3 (0.00-0.10); Basophils Percent Auto 0.2 % (0.0-1.0); Eosinophils Percent Auto 0.9 % (1.0-6.0); Hematocrit 33.2 % (37.0-46.0); Hemoglobin 11.2 g/dL (12.4-15.3); Immature Granulocyte Absolute 0.22 K/mm3 (0.00-0.00); Immature Granulocyte Percent A 1.9 % (0.0-0.0); Lymphocytes Absolute Auto 0.66 K/mm3 (1.10-4.50); Lymphocytes Percent Auto 5.7 % (18.0-42.0); Mean Corpuscular HGB Conc 33.7 g/dL (32.0-36.0); Mean Corpuscular Hemoglobin 31.6 pg (27.0-31.0); Mean Corpuscular Volume 93.8 fL (78.0-102.0); Mean Platelet Volume 10.1 fl (8.7-11.0); Monocytes Absolute Auto 1.16 K/mm3 (0.10-0.90); Neutrophils Absolute Auto 9.4 K/mm3 (1.7-7.2); Neutrophils Percent Auto 81.3 % (50.0-70.0); Platelet Count Result 187 K/mm3 (150-420); Red Blood Count 3.54 M/mm3 (4.70-6.10); Red Cell Distribution Width 14.6 % (11.6-14.4); White Blood Count 11.6 K/mm3 (4.8-10.8)
--- NOTE | 2023-11-21 13:18 | ED.AMS ---
HPI - Altered Mental Status General Chief Complaint: Altered Mental Status Stated Complaint: SOB/WEAKNESS Time Seen by Provider: 11/21/23 12:44 Source: patient Mode of arrival: ambulatory Limitations: no limitations History of Present Illness HPI narrative: Patient is a 73-year-old male who has not been feeling well for a couple days. Family is concerned that he has a pneumonia at this time. He has stage IV metastatic lung cancer. Patient gets chemo and radiation. He has bilateral lower extremity amputation. MD complaint: altered mental status and confusion Onset (ago): day(s) (3) Timing confirmed by: family member Severity: moderate Consistency of symptoms: getting Worse Context: history of similar presentation ( Similar situation last time he had pneumonia) Associated symptoms: malaise and shortness of breath Related Data Home Medications Medication Instructions Recorded Confirmed docusate sodium 100 mg capsule 100 mg PO DAILY 09/22/19 11/21/23 saw palm 160 mg-vit E 100 1 tablet PO DAILY 09/22/19 11/21/23 unit-selen 100 [id number]-ahsb-zuofmp-pygeum tablet ([facility]) loratadine 10 mg tablet 10 mg PO DAILY 04/25/23 11/21/23 atorvastatin 80 mg tablet 80 mg PO HS 09/13/23 11/21/23 bupropion HCl 100 mg tablet 100 mg PO BID 09/13/23 11/21/23 clopidogrel 75 mg tablet 75 mg PO DAILY 09/13/23 11/21/23 duloxetine 30 mg capsule,delayed 30 mg PO BID 09/13/23 11/21/23 release famotidine 20 mg tablet 40 mg PO DAILY 09/13/23 11/21/23 fluticasone fur. 200 mcg-umeclid 1 inh inhalation DAILY 09/13/23 11/21/23 62.5 mcg-vilant 25 mcg inhalat.powder (Trelegy Ellipta) pantoprazole 20 mg tablet,delayed 20 mg PO DAILY 09/13/23 11/21/23 release propranolol 40 mg tablet 40 mg PO BID 09/13/23 11/21/23 ferrous sulfate 325 mg (65 mg 325 mg PO DAILY 10/15/23 11/21/23 iron) tablet Allergies Allergy/AdvReac Type Severity Reaction Status Date / Time morphine Allergy Intermediate Hypotension Verified 11/21/23 07:37 and Hallucinations Review of Systems Review of Systems: All systems reviewed & are unremarkable except as noted in HPI and below Constitutional: Constitutional: Reports no additional constitutional complaints Eyes: Eyes: Reports no additional eye complaints ENT: Reports system reviewed and no additional complaints, except as documented Cardiovascular: Cardiovascular: Reports no additional cardiovascular complaints Respiratory: Respiratory: Reports no additional respiratory complaints Gastrointestinal: Gastrointestinal: Reports no additional gastrointestinal complaints Genitourinary: Genitourinary: Reports no additional male genitourinary complaints Musculoskeletal: Musculoskeletal: Reports no additional musculoskeletal complaints Integumentary/Breasts: Skin/Breast: Reports system reviewed and no additional complaints, except as docu Neurologic: Reports system reviewed and no additional complaints, except as documented Psychiatric: Psychiatric: Reports no additional psychiatric complaints Endocrine: Endocrine: Reports no additional endocrine complaints Hematologic/Lymphatic: Hematologic/Lymphatic: Reports no additional hematologic/lymphatic complaints Allergic/Immunologic: Allergic/Immunologic: Reports no additional allergic/immunologic complaints PMFSH Past Medical History Medical History COPD (chronic obstructive pulmonary disease) CVA (cerebral vascular accident) GERD (gastroesophageal reflux disease) Glaucoma Hyperlipidemia Hypertension Lung cancer Nicotine dependence Phantom pain after amputation of lower extremity Surgical History Surgical History History of below-knee amputation of both lower extremities S/P femoral-popliteal bypass surgery Family History Family History Sibling ALS (amyotrophic lateral
[2023-11-21] MEDS: methylPREDNISolone SOD SUCC 125 MG VIAL IV PUSH (13:40)
[2023-11-21 13:41] LABS: Alanine Aminotransferase 13 U/L (16-63); Albumin Level 2.5 g/dL (3.4-5.0); Alkaline Phosphatase 79 U/L (46-116); Anion Gap 8 mmol/L (8-16); Aspartate Amino Transferase 23 U/L (15-37); Bilirubin,Total 0.5 mg/dL (0.00-1.00); Blood Urea Nitrogen 32 mg/dL (7-18); Carbon Dioxide 27 mmol/L (21-32); Chloride 103 mmol/L (98-108); Estimated Glomerular Filt Rate 35; Glucose 102 mg/dL (70-99); NT Pro B Type Natriuretic Pept 1290 pg/mL (0-125); Osmolality Calculated 292 mOsm/kg (285-295); Potassium 4.2 mmol/L (3.5-5.1); Sodium 138 mmol/L (136-145)
[2023-11-21 13:55] LABS: SARS-CoV-2 RNA PCR Negative (Negative)
[2023-11-21 13:56] LABS: Troponin I 8.8 ng/L (0.00-60.4)
[2023-11-21 13:58] LABS: Influenza A QL RT-PCR Negative (Negative); Influenza B QL RT-PCR Negative (Negative); RSV RNA, RT-PCR Negative (Negative)
[2023-11-21 13:59] LABS: Appearance Urine Clear (Clear); Bilirubin Urine Negative (Negative); Blood Urine Trace-Intact (Negative); Color Urine Yellow (Yellow); Glucose Urine UA Negative (Negative); Ketones Urine Trace (Negative); Leukocyte Esterase Ur Trace LEU/UL (Negative); Nitrate Urine Negative (Negative); Protein Urine 1+ (Negative); Urobilinogen Urine 0.2 mg/dL (0.2-1.0)
[2023-11-21 14:03] LABS: Add Urine Microscopic? YES; RBC Urine None seen /hpf (0-2); Squamous Epithelial Cell Urine Rare /hpf (Few); WBC Urine None seen /hpf (0-3)
[2023-11-21 14:04] LABS: Amorphous Sediment Urine Moderate; Bacteria Urine Trace /hpf
[2023-11-21 14:20] LABS: Lactic Acid Reflex 1.4 mmol/L (0.4-2.0)
[2023-11-21] MEDS: SODIUM CHLORIDE 0.9% IV 500 ML 999 ML IV CONT (15:27)
[2023-11-21] MEDS: PIPERACILLIN/TAZ 2.25G/NS 50ML 2.25 GM/50 ML BAG IVPB (15:27)
--- NOTE | 2023-11-27 12:20 | PC.NURSE ---
Final blood culture report, no growth after 5 days, no further treatment or action needed.
== END 2023-11-21 17:16 | disposition short-term general hospital (02) ==
PROVIDERS: Emergency Provider Emergency Medicine; PCP Family Medicine
DX: N17.9 Acute kidney failure, unspecified (principal); C34.91 Malignant neoplasm of unspecified part of right bronchus or lung; J18.9 Pneumonia, unspecified organism; I95.9 Hypotension, unspecified; J44.1 Chronic obstructive pulmonary disease with (acute) exacerbation; E86.0 Dehydration; R40.4 Transient alteration of awareness; J44.9 Chronic obstructive pulmonary disease, unspecified; E78.5 Hyperlipidemia, unspecified; I10 Essential (primary) hypertension; F17.210 Nicotine dependence, cigarettes, uncomplicated; Z79.899 Other long term (current) drug therapy; Z86.73 Personal history of transient ischemic attack (TIA), and cerebral infarction without residual deficits; Z20.822 Contact with and (suspected) exposure to COVID-19
CPT/HCPCS: 36415; 70450; 71046; 71250; 80053; 81001; 83605; 83880; 84484; 85025; 87040; 87637; 93005; 96365; 96375; 99285; J2543; J2930; J7040

== ENCOUNTER 2023-11-21 18:12 | Inpatient (IN) | payer MEDICARE, MEDICAID, SELFPAY ==
--- NOTE | 2023-11-21 18:23 | PC.NURSE ---
This RN took report from Phil ZARCO ([facility]) and she reported via telephone that the patient's medications were confirmed with patient's as patient is very forgetful. This RN confirmed medications based off of the transfer sheets sent over from [facility].
[2023-11-21 18:34] VITALS: BMI 101.7
--- NOTE | 2023-11-21 18:35 | PC.NURSE ---
This patient, Denise Westbrook, was admitted to Medical Room 342-01. Patient/family oriented to hospital policies and general routines including ID bracelet, bed and alarms, visiting hours, pain management, procedures, bathroom and other care routines, personal items, smoking policy, room service/diet, and visiting hours. Information on how to activate the Rapid Response Team has been discussed. Patient/Family are encouraged to report perceived risks to care and to ask questions if they do not understand what they are told or what they should do.
--- NOTE | 2023-11-21 18:59 | PC.NURSE ---
The admission was completed via telephone by this RN and husbands spouse Joan.
[2023-11-21 19:37] LABS: Estimated Glomerular Filt Rate 46
[2023-11-21 20:00] VITALS: O2SAT 98
[2023-11-21 20:37] VITALS: BP 129/75; PULSE 62; RESP 20; TEMP 36.6; O2SAT 99
[2023-11-21] MEDS: PIPERACILLIN/TAZ 2.25G/NS 50ML 2.25 GM/50 ML BAG IVPB (20:46)
[2023-11-21] MEDS: LACTATED RINGERS 1,000 ML 100 ML IV CONT (20:48)
--- NOTE | 2023-11-21 21:01 | PM.IMHP ---
H&P: HPI History of Present Illness Date/Time: 11/21/23 21:01 Chief Complaint: SOB, Generalized Weakness Narrative: 73 y/o M presents here with shortness of breath and generalized weakness with PMH of COPD, CVA, GERD, glaucoma, HLD, HTN, lung cancer stage IV (radiation 05/16-05/30), and BKA BLE. Patient presented to [facility] ED for evaluation of shortness of breath, hemoptysis, and increased confusion. Family who was at the bedside reported concerns that patient had pneumonia due to similar presentation with same. Symptoms 1st noted 3 days ago and have been getting progressively worse. Additionally has associated malaise. Last radiation treatment in May. Last documented neuro assessment before evaluation today was in September of 2023, patient was orientated to person, place, and time. Due to patient's current disorientation, HPI obtained through chart review. Initial VS at presentation: ED workup showed WBC of 11.6, no significant anemia, creatinine 1.8 (up trend from previous at 1.4 on 10/31), BNP 1290, and viral PCR negative. Head CT showed old infarcts and moderate nonspecific cerebral white matter disease. CXR showed stable airspace opacities in the right mid and lower lung zones consistent with pneumonia and/or radiation pneumonitis, emphysema. Chest CT showed stable right hilar mass, worsened airspace and ground-glass opacities in the right lung, and moderate emphysema. Review of Systems Review of Systems: ROS unobtainable: Yes unobtainable due to mental status PMFSH Past Medical History Medical History (Updated 11/21/23 @ 21:14 by Florence Rodriguez APRN) Aortic aneurysm, abdominal Cataracts, bilateral Cognitive decline COPD (chronic obstructive pulmonary disease) CVA (cerebral vascular accident) Essential tremor GERD (gastroesophageal reflux disease) Glaucoma Hyperlipidemia Hypertension Lung cancer Neuropathy (01/19/18) Nicotine dependence Phantom pain after amputation of lower extremity Surgical History Surgical History (Updated 11/21/23 @ 21:14 by Florence Rodriguez APRN) History of below-knee amputation of both lower extremities S/P femoral-popliteal bypass surgery Family History Family History Sibling ALS (amyotrophic lateral sclerosis) Mother Tremors of nervous system Father Acute myocardial infarction Social History Social History Smoking packs per day: 0.25 Smoking cigarettes per day: 5.0 Years smoked: 60 Smoking pack-years: 15.00 Smoking status: Current every day smoker Tobacco type: cigarettes Second hand tobacco smoke exposure: Yes Additional smoking assessment comments: down to 1/2 pack currently Alcohol intake: current Alcohol use details: 1-2 cans of beer per month Substance use: current Substance use type: marijuana Do You Feel Safe in your Home?: Yes Lack of Transportation: No Lack of Food: Sometimes True Current Housing: I Have Housing Concerned About Future Housing: No Difficulty Paying Gas/Electric Bills: YES Difficulty Paying for Meds: No Currently Unemployed: No Education: Trade/Vocational Certificate Difficulty w/ Childcare or Family Care: No Living arrangements: with family Additional living arrangements comments: . 2 Children. 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
[2023-11-21 22:08] LABS: Alveolar/Arterial O2 Gradient 36.9 mmHg; Base Excess ABG -2.8 mEq/l (+/-2.0); Fractional Inspired Oxygen 24 %; HCO3 ABG 20.9 mEq/l (22.0-26.0); Oxygen Content ABG 16.2 %vol (16.0-22.0); Oxygen Saturation ABG 97.4 % (95.0-100.0); Oxyhemoglobin 96.1 % THb (90.0-100.0); PCO2 ABG 33.1 mmHg (35.0-45.0); PO2 ABG 94.8 mmHg (80.0-100.0); PO2 FiO2 Ratio Arterial Blood 3.95 %; Total Hemoglobin 11.9 g/dL (12.0-18.0); pH ABG 7.419 (7.350-7.450)
[2023-11-21 22:09] LABS: Device NASAL CANNULA; Site Drawn RIGHT BRACHIAL
[2023-11-22] VITALS (14 sets, daily range): BP systolic 108–158; BP diastolic 68–74; PULSE 72–90; RESP 14–18; TEMP 36.4–36.6; O2SAT 93–100
[2023-11-22] MEDS: PROPRANOLOL HCL 40 MG TABLET PO ×3 (00:40→21:04)
[2023-11-22] MEDS: IPRATROPIUM 0.5 MG/ALBUTEROL SULFATE 2.5 MG AMPUL.NEB 3 ML INHALATION ×4 (02:30→21:47)
[2023-11-22] MEDS: PIPERACILLIN/TAZ 2.25G/NS 50ML 2.25 GM/50 ML BAG IVPB ×4 (03:18→21:05)
[2023-11-22 05:47] LABS: Basophils Percent Auto 0.1 % (0.2-1.2); Hematocrit 32.8 % (42.0-52.0); Hemoglobin 10.9 g/dL (14.0-18.0); Immature Granulocyte Absolute 0.05 K/mm3 (0.00-0.031); Immature Granulocyte Percent A 0.6 % (0-0.5); Lymphocytes Absolute Auto 0.44 K/mm3 (0.9-3.2); Lymphocytes Percent Auto 5.1 % (18.3-44.2); Mean Corpuscular HGB Conc 33.2 g/dl (32-36); Mean Corpuscular Hemoglobin 31.8 pg (26-34); Mean Corpuscular Volume 95.6 fl (80-100); Mean Platelet Volume 10.5 fl (7.4-10.4); Monocytes Absolute Auto 0.6 K/mm3 (0.1-0.6); Monocytes Percent Auto 6.7 % (2.6-8.5); Neutrophils Absolute Auto 7.6 K/mm3 (1.3-6.7); Neutrophils Percent Auto 87.5 % (45.5-73.1); Platelet Count Result 178 k/mm3 (150-375); Red Blood Count 3.43 M/mm3 (4.6-6.20); Red Cell Distribution Width 14.6 % (11.5-14.5); White Blood Count 8.7 K/mm3 (4.5-10.0)
[2023-11-22 06:13] LABS: Alanine Aminotransferase 20 U/L (6-50); Albumin Level 3.2 g/dL (3.5-5.1); Alkaline Phosphatase 88 U/L (38-126); Anion Gap 9 mmol/L (8-16); Aspartate Amino Transferase 31 U/L (17-59); Bilirubin,Total 0.7 mg/dL (0.2-1.3); Blood Urea Nitrogen 28 mg/dL (9-20); Calcium 9.2 mg/dL (8.4-10.2); Carbon Dioxide 21 mmol/L (22-30); Chloride 107 mmol/L (98-107); Estimated Glomerular Filt Rate 54; Glucose 119 mg/dL (65-110); Magnesium 2.1 mg/dL (1.6-2.3); Potassium 4.1 mmol/L (3.4-5.0); Sodium 137 mmol/L (137-145)
[2023-11-22] MEDS: FLUTICASONE/UMECLIDIN/VILANTER 200-62.5-25 MCG ELLIPTA 1 PUFF INHALATION (08:33)
[2023-11-22] MEDS: predniSONE 20 MG TABLET 40 MG PO (09:29)
[2023-11-22] MEDS: buPROPion HCL 100 MG TABLET PO ×2 (09:30→21:04)
[2023-11-22] MEDS: PANTOPRAZOLE SOD SESQUIHYDRATE 20 MG TAB PO (09:30)
[2023-11-22] MEDS: ASPIRIN 81 MG ENTERIC TABLET PO (09:30)
[2023-11-22] MEDS: FAMOTIDINE 20 MG TABLET 40 MG PO (09:30)
[2023-11-22] MEDS: DULoxetine HCL 30 MG CAPSULE.DR PO ×2 (09:30→21:03)
[2023-11-22] MEDS: CLOPIDOGREL BISULFATE 75 MG TABLET PO (09:30)
[2023-11-22] MEDS: LORATADINE 10 MG TABLET PO (09:30)
[2023-11-22] MEDS: CARBIDOPA/LEVODOPA 10/100 MG TABLET 1 TABLET PO ×2 (09:30→21:03)
[2023-11-22] MEDS: PREGABALIN (*CRX) 75 MG CAPSULE 225 MG PO ×2 (09:30→16:46)
[2023-11-22] MEDS: DOCUSATE SODIUM 100 MG CAPSULE PO (09:30)
[2023-11-22] MEDS: TOLNAFTATE 1% POWDER 45 GM BTL 1 APPLIC TOPICAL ×2 (09:31→21:11)
[2023-11-22] MEDS: ENOXAPARIN 30 MG/0.3 ML SYRINGE SUB-Q (09:35)
--- NOTE | 2023-11-22 11:07 | PM.IMPN ---
Progress Note: A&P Assessment and Plan (1) Pneumonia: Qualifiers: Laterality: right Lung location: unspecified part of lung Pneumonia type: due to unspecified organism Qualified Code(s): J18.9 - Pneumonia, unspecified organism <Nereyda FoxHeidi Suarez, Student - Last Filed: 11/22/23 14:19> Code(s): J18.9 - Pneumonia, unspecified organism <Nereyda RuddyHeidi Suarez, Student - Last Filed: 11/22/23 14:19> Status: Acute <Nereyda Brito Daniela, Student - Last Filed: 11/22/23 14:19> Assessment and Plan: Lactic acid 1.4 Vitals within normal limits on arrival No elevation in white blood cell count Patient has had radiation therapy for stage IV lung cancer, last radiation session on 05/30/2023 - CXR: 1. Stable airspace opacities in right mid and lower lung zones, consistent with pneumonia and/or radiation pneumonitis. 2. Emphysema. - Chest CT: 1. Stable right hilar mass, consistent with primary bronchogenic carcinoma and changes of radiation therapy. 2. Worsened airspace and ground glass opacities in right lung, worst in right lower lobe, consistent with pneumonia. 3. Moderate emphysema. Continue Zosyn Q6H for suspected pneumonia Will repeat MRSA swap Sputum culture not collected yet Blood cultures show preliminary NGTD CRP elevated, likely due to lung cancer Trend CBC <Nereyda RuddyHeidi Suarez, Student - Last Filed: 11/22/23 14:19> (2) ALFONZO (acute kidney injury): Code(s): N17.9 - Acute kidney failure, unspecified <Nereyda Suarez, Student - Last Filed: 11/22/23 14:19> Status: Acute <Nereyda RuddyHeidi Suarez, Student - Last Filed: 11/22/23 14:19> Assessment and Plan: Creatinine 1.89 on arrival; now 1.30 Previously 1.4 on 10/31 BUN 32, ECC not reportable, GFR 35 on arrival Continue to trend renal function Likely underlying chronic renal disease <Nereyda Suarez, Student - Last Filed: 11/22/23 14:19> (3) COPD (chronic obstructive pulmonary disease): Qualifiers: COPD type: COPD with acute exacerbation Qualified Code(s): J44.1 - Chronic obstructive pulmonary disease with (acute) exacerbation <Nereyda RuddyHeidi Suarez Student - Last Filed: 11/22/23 14:19> Code(s): J44.9 - Chronic obstructive pulmonary disease, unspecified <Nereyda RuddyHeidi Suarez Student - Last Filed: 11/22/23 14:19> Status: Acute <Nereyda RuddyHeidi Suarez, Student - Last Filed: 11/22/23 14:19> Assessment and Plan: Patient with shortness of breath on arrival. Physical exams appreciate wheezing. No respiratory distress. Patient has a history of recurrent hospital visits for COPD exacerbations Oxygen saturations above 92% on room air Duo-Nebs Q6hr Start prednisone 40 mg p.o. daily x5 days <Nereyda RuddyHeidi Suarez, Student - Last Filed: 11/22/23 14:19> Patient with shortness of breath on arrival. Physical exams appreciate wheezing. No respiratory distress. Patient has a history of recurrent hospital visits for COPD exacerbations Oxygen saturations above 92% on room air Duo-Nebs Q6hr Start prednisone 40 mg p.o. daily x5 days <Dale Escobar MD - Last Filed: 11/22/23 16:43> (4) AMS (altered mental status): Qualifiers: Altered mental status type: transient alteration of awareness Qualified Code(s): R40.4 - Transient alteration of awareness <Nereyda Suarez Student - Last Filed: 11/22/23 14:19> Code(s): R41.82 - Altered mental status, unspecified <Nereydaalbert Suarez, Student - Last Filed: 11/22/23 14:19> Status: Acute <Nereyda uRddyHeidi Suarez Student - Last Filed: 11/22/23 14:19> Assessment and Plan: CT Head obtained on arrival 1. Old infarcts in the brain. 2. Moderate nonspecific cerebral white matter disease, which likely represents chronic small vessel ischemic disease. Patient was A&Ox1 (self) on arrival Has history of CVA with residual speech finding difficulties ABG shows minimally low pCO2
[2023-11-22] MEDS: FERROUS SULFATE 325 MG TABLET DR PO (12:35)
[2023-11-22 18:14] LABS: MRSA (PCR) NOT DETECTED (NOT DETECTE)
[2023-11-22] MEDS: ATORVASTATIN 40 MG TABLET 80 MG PO (21:04)
[2023-11-22] MEDS: HYDROcodone/acetaminophen (*CRX) 5-325 MG TABLET 1 TAB PO (21:04)
[2023-11-23 02:16] VITALS: PULSE 71; RESP 18
[2023-11-23] MEDS: IPRATROPIUM 0.5 MG/ALBUTEROL SULFATE 2.5 MG AMPUL.NEB 3 ML INHALATION ×2 (02:16→07:41)
[2023-11-23 02:26] VITALS: PULSE 70; RESP 18
[2023-11-23] MEDS: PIPERACILLIN/TAZ 2.25G/NS 50ML 2.25 GM/50 ML BAG IVPB ×2 (03:20→09:47)
[2023-11-23 05:10] VITALS: BP 129/75; PULSE 75; RESP 16; TEMP 36.4; O2SAT 97
[2023-11-23 05:43] LABS: Anion Gap 4 mmol/L (8-16); Blood Urea Nitrogen 24 mg/dL (9-20); Calcium 8.9 mg/dL (8.4-10.2); Carbon Dioxide 25 mmol/L (22-30); Chloride 107 mmol/L (98-107); Estimated Glomerular Filt Rate 54; Glucose 101 mg/dL (65-110); Potassium 3.4 mmol/L (3.4-5.0); Sodium 136 mmol/L (137-145)
[2023-11-23 07:41] VITALS: PULSE 72; RESP 18; O2SAT 95
[2023-11-23] MEDS: FLUTICASONE/UMECLIDIN/VILANTER 200-62.5-25 MCG ELLIPTA 1 PUFF INHALATION (07:42)
[2023-11-23 08:07] VITALS: PULSE 75; RESP 18
[2023-11-23] MEDS: POTASSIUM CHLORIDE 20 MEQ ER TABLET 40 MEQ PO (09:41)
[2023-11-23] MEDS: predniSONE 20 MG TABLET 40 MG PO (09:42)
[2023-11-23] MEDS: buPROPion HCL 100 MG TABLET PO (09:43)
[2023-11-23] MEDS: CARBIDOPA/LEVODOPA 10/100 MG TABLET 1 TABLET PO (09:43)
[2023-11-23] MEDS: CLOPIDOGREL BISULFATE 75 MG TABLET PO (09:43)
[2023-11-23] MEDS: ASPIRIN 81 MG ENTERIC TABLET PO (09:43)
[2023-11-23] MEDS: FAMOTIDINE 20 MG TABLET 40 MG PO (09:44)
[2023-11-23] MEDS: LORATADINE 10 MG TABLET PO (09:44)
[2023-11-23] MEDS: DULoxetine HCL 30 MG CAPSULE.DR PO (09:44)
[2023-11-23] MEDS: DOCUSATE SODIUM 100 MG CAPSULE PO (09:44)
[2023-11-23] MEDS: PANTOPRAZOLE SOD SESQUIHYDRATE 20 MG TAB PO (09:45)
[2023-11-23] MEDS: PREGABALIN (*CRX) 75 MG CAPSULE 225 MG PO (09:46)
[2023-11-23] MEDS: TOLNAFTATE 1% POWDER 45 GM BTL 1 APPLIC TOPICAL (09:47)
[2023-11-23] MEDS: ENOXAPARIN 40 MG/0.4 ML SYRINGE SUB-Q (09:48)
[2023-11-23 10:04] VITALS: PULSE 83
[2023-11-23] MEDS: PROPRANOLOL HCL 40 MG TABLET PO (10:04)
--- NOTE | 2023-11-23 10:34 | PM.IMPN ---
Progress Note: A&P Assessment and Plan (1) Pneumonia: Qualifiers: Laterality: right Lung location: unspecified part of lung Pneumonia type: due to unspecified organism Qualified Code(s): J18.9 - Pneumonia, unspecified organism <Nereyda Suarez, Student - Last Filed: 11/23/23 12:07> Code(s): J18.9 - Pneumonia, unspecified organism <Nereyda Suarez, Student - Last Filed: 11/23/23 12:07> Status: Acute <Nereyda RuddyHeidi Suarez, Student - Last Filed: 11/23/23 12:07> Assessment and Plan: Lactic acid 1.4 Patient has remained afebrile No elevation in white blood cell count Patient has had radiation therapy for stage IV lung cancer, last radiation session on 05/30/2023 - CXR: 1. Stable airspace opacities in right mid and lower lung zones, consistent with pneumonia and/or radiation pneumonitis. 2. Emphysema. - Chest CT: 1. Stable right hilar mass, consistent with primary bronchogenic carcinoma and changes of radiation therapy. 2. Worsened airspace and ground glass opacities in right lung, worst in right lower lobe, consistent with pneumonia. 3. Moderate emphysema. Continue Zosyn Q6H for suspected pneumonia MRSA swap is negative Blood cultures show no growth in 48 hours CRP elevated, likely due to lung cancer Prepare to discharge patient home with oral Augmentin <Nereyda Suarez, Student - Last Filed: 11/23/23 12:07> (2) ALFONZO (acute kidney injury): Code(s): N17.9 - Acute kidney failure, unspecified <Nereyda Suarez, Student - Last Filed: 11/23/23 12:07> Status: Acute <Nereyda Suarez Student - Last Filed: 11/23/23 12:07> Assessment and Plan: Creatinine 1.89 on arrival; now 1.30 Previously 1.4 on 10/31 BUN 32, ECC not reportable, GFR 35 on arrival Continue to trend renal function Likely underlying chronic renal disease <Nereyda Suarez, Student - Last Filed: 11/23/23 12:07> (3) COPD (chronic obstructive pulmonary disease): Qualifiers: COPD type: COPD with acute exacerbation Qualified Code(s): J44.1 - Chronic obstructive pulmonary disease with (acute) exacerbation <Nereyda Brito Daniela Student - Last Filed: 11/23/23 12:07> Code(s): J44.9 - Chronic obstructive pulmonary disease, unspecified <Nereyda Gujavier Student - Last Filed: 11/23/23 12:07> Status: Acute <Nereyda Brito Daniela Student - Last Filed: 11/23/23 12:07> Assessment and Plan: Patient with shortness of breath on arrival. Physical exams appreciate wheezing. No respiratory distress. Patient has a history of recurrent hospital visits for COPD exacerbations Oxygen saturations above 92% on room air Duo-Nebs Q6hr Continue prednisone 40 mg p.o. daily x5 days <Nereyda RuddyHeidi Suarez Student - Last Filed: 11/23/23 12:07> (4) AMS (altered mental status): Qualifiers: Altered mental status type: transient alteration of awareness Qualified Code(s): R40.4 - Transient alteration of awareness <Nereyda FoxHeidi Suarez, Student - Last Filed: 11/23/23 12:07> Code(s): R41.82 - Altered mental status, unspecified <Nereyda Brito Daniela, Student - Last Filed: 11/23/23 12:07> Status: Acute <Nereyda FoxHeidi Suarez Student - Last Filed: 11/23/23 12:07> Assessment and Plan: CT Head obtained on arrival 1. Old infarcts in the brain. 2. Moderate nonspecific cerebral white matter disease, which likely represents chronic small vessel ischemic disease. Patient was A&Ox1 (self) on arrival Has history of CVA with residual speech finding difficulties ABG shows minimally low pCO2 of 33.1, otherwise normal Suspect alteration due to current infection vs. patient's baseline is likely A&Ox1-2 <Nereyda RuddyHeidi Suarez, Student - Last Filed: 11/23/23 12:07> (5) Lung cancer: Qualifiers: Laterality: right Lung location: unspecified part of lung Qualified Code(s): C34.91 - Malignant tamiko
--- NOTE | 2023-11-23 12:04 | PM.DS ---
DS: Admitting Diagnosis Discharge Date 11/23/23 Admitting Diagnosis SOB, Generalized Weakness DS: Discharge Diagnosis Discharge Diagnosis (1) Pneumonia: Qualifiers: Laterality: right Lung location: unspecified part of lung Pneumonia type: due to unspecified organism Qualified Code(s): J18.9 - Pneumonia, unspecified organism Code(s): J18.9 - Pneumonia, unspecified organism Status: Acute (2) ALFONZO (acute kidney injury): Code(s): N17.9 - Acute kidney failure, unspecified Status: Acute (3) COPD (chronic obstructive pulmonary disease): Qualifiers: COPD type: COPD with acute exacerbation Qualified Code(s): J44.1 - Chronic obstructive pulmonary disease with (acute) exacerbation Code(s): J44.9 - Chronic obstructive pulmonary disease, unspecified Status: Acute (4) AMS (altered mental status): Qualifiers: Altered mental status type: transient alteration of awareness Qualified Code(s): R40.4 - Transient alteration of awareness Code(s): R41.82 - Altered mental status, unspecified Status: Acute (5) Lung cancer: Qualifiers: Laterality: right Lung location: unspecified part of lung Qualified Code(s): C34.91 - Malignant neoplasm of unspecified part of right bronchus or lung Code(s): C34.90 - Malignant neoplasm of unspecified part of unspecified bronchus or lung Status: Acute DS: Summary Hospital Course Reason for hospitalization: 73yo male with dementia, COPD, CVA, lung cancer stage IV?and BKA BLE here for SOB. Please see H&P for details. Hospital Course: Patient presents with shortness of breath. Lactic acid 1.4. Patient remained afebrile. WBC elevated at 11.6 and CRP 25. CXR showing stable airspace opacities in right mid and lower lung zones and emphysema. Chest CT showing stable right hilar mass, consistent with primary bronchogenic carcinoma and changes of radiation therapy; worsening airspace and ground glass opacities in right lung and moderate emphysema. Started on Zosyn. MRSA swab is negative. Blood cultures show no growth in 48 hours. WBC normalized. CRP elevated but felt likely due to lung cancer. Creatinine 1.89 on arrival; now 1.30. Previously 1.4 on 10/31 so felt to be at baseline. Patient with shortness of breath on arrival. Physical exams appreciate wheezing but no respiratory distress. Patient has a history of recurrent hospital visits for COPD exacerbations. Oxygen saturations above 92% on room air. He was started on Duo-Nebs Q6hr and prednisone with improvement in his clincial exam. He also had altered mental status. CT Head showing old infarcts and moderate nonspecific cerebral white matter disease. Patient was A&Ox1 (self) on arrival. He has a history of CVA with residual speech finding difficulties. No evidence of observed trouble with eating or aspiration. Suspect altered mental status due to current infection. Patient with known lung cancer. Last radiation on 05/30/2023 and not interested in surgery or chemotherapy.? Poor candidate for biopsy due to being a poor surgical candidate and risks in the setting of patient's severe COPD/emphysema. Patient follows with Oncologist. CT chest showing a stable right hilar mass consistent with primary bronchogenic carcinoma and may have findings of radiation pneumonitis. Discussed with pharmacy about Augmentin dosing to ensure accuracy. He overall did well. He was able to be discharged home on 11/23/23. Status at Discharge Cognitive/behavioral status at discharge: stable Time Spent with Patient Time attestation: Total time spent providing and/or coordinating discharge services: 32 minutes Time spent: Greater than 30 minutes Exam Narrative: AF 97.6 129/75 83 18 95% ra Gen - NARD Chest - bilateral basilar inspiratory crackles o/w clear, distant BS. no wheezing CV - RRR S1/S2 Abd - Soft, mildly protuberant with bladder fullness. Ext - bilateral AKA Neuro -
[2023-11-23] MEDS: FERROUS SULFATE 325 MG TABLET DR PO (12:53)
== END 2023-11-23 14:30 | disposition home health service (06) | DRG 206 ==
PROVIDERS: Student in an Organized Health Care Education/Training Program; Admitting Provider Family Medicine; PCP Family Medicine; Visit Provider Internal Medicine
DX: J70.0 Acute pulmonary manifestations due to radiation (principal); C34.91 Malignant neoplasm of unspecified part of right bronchus or lung; J44.0 Chronic obstructive pulmonary disease with (acute) lower respiratory infection; J44.1 Chronic obstructive pulmonary disease with (acute) exacerbation; N17.9 Acute kidney failure, unspecified; R41.82 Altered mental status, unspecified; F03.90 Unspecified dementia, unspecified severity, without behavioral disturbance, psychotic disturbance, mood disturbance, and anxiety; K21.9 Gastro-esophageal reflux disease without esophagitis; H40.9 Unspecified glaucoma; E78.5 Hyperlipidemia, unspecified; I10 Essential (primary) hypertension; G62.9 Polyneuropathy, unspecified; F17.210 Nicotine dependence, cigarettes, uncomplicated; I69.328 Other speech and language deficits following cerebral infarction; Z89.512 Acquired absence of left leg below knee; Z89.511 Acquired absence of right leg below knee
CPT/HCPCS: 36415; 36600; 80048; 80053; 82565; 82805; 83735; 85025; 86140; 87641; 94640; 96366; 96367; A9270; G0378; J1650; J2543; J7120; J7512

== ENCOUNTER 2023-12-31 13:19 | Outpatient (CLI) | payer MEDICARE, MEDICAID, SELFPAY ==
--- NOTE | ~2023-12-31 | XR_ITS ---
XR lumbar spine 2-3V 12/31/2023 13:45 Indication: Back pain Procedure: 3 views lumbar spine Comparison: No prior studies for comparison. Findings: Vertebral body heights are maintained. No acute fracture or traumatic malalignment. No evid ence for spondylolisthesis. There is facet hypertrophy at L3-4, L4-5 and L5-S1. No evidence for spond ylolisthesis. There is a right iliac artery stent. There are right renal stones. Impression: 1: Moderate lumbar spondylosis. 2: Right nephrolithiasis. Reviewed, dictated and finalized at location A. Impression: 1: Moderate lumbar spondylosis. 2: Right nephrolithiasis.
[2023-12-31 13:54] LABS: Basophils Absolute Auto 0.05 K/mm3 (0.00-0.10); Basophils Percent Auto 0.4 % (0.0-1.0); Eosinophils Percent Auto 1.6 % (1.0-6.0); Hematocrit 35.3 % (37.0-46.0); Hemoglobin 11.4 g/dL (12.4-15.3); Immature Granulocyte Absolute 0.09 K/mm3 (0.00-0.00); Immature Granulocyte Percent A 0.7 % (0.0-0.0); Lymphocytes Absolute Auto 0.93 K/mm3 (1.10-4.50); Lymphocytes Percent Auto 7.3 % (18.0-42.0); Mean Corpuscular HGB Conc 32.3 g/dL (32-36); Mean Corpuscular Hemoglobin 30.1 pg (27.0-31.0); Mean Corpuscular Volume 93.1 fL (78.0-102.0); Mean Platelet Volume 10.3 fl (8.7-11.0); Monocytes Absolute Auto 1.89 K/mm3 (0.10-0.90); Monocytes Percent Auto 14.8 % (2.0-11.0); Neutrophils Absolute Auto 9.59 K/mm3 (1.70-7.20); Neutrophils Percent Auto 75.2 % (50.0-70.0); Platelet Count Result 320 K/mm3 (150-420); Red Blood Count 3.79 M/mm3 (4.70-6.10); Red Cell Distribution Width 14.7 % (11.6-14.4); White Blood Count 12.8 K/mm3 (4.8-10.8)
[2023-12-31 15:09] LABS: Appearance Urine Clear (Clear); Bilirubin Urine 1+ (Negative); Blood Urine Negative (Negative); Color Urine Dark Yellow (Yellow); Glucose Urine UA Negative (Negative); Ketones Urine 1+ (Negative); Leukocyte Esterase Ur Negative (Negative); Nitrate Urine Negative (Negative); Protein Urine Negative (Negative); Specific Grav Ur >= 1.030 (1.010-1.020); Urobilinogen Urine 0.2 mg/dL (0.2-1.0)
[2023-12-31 15:15] LABS: Add Urine Microscopic? YES; Bacteria Urine Trace /hpf; Mucus Urine Moderate /lpf; RBC Urine None seen /hpf (0-2); Squamous Epithelial Cell Urine Rare /hpf (Few); WBC Urine None seen /hpf (0-3)
[2023-12-31 15:19] LABS: Alanine Aminotransferase 12 U/L (16-63); Albumin Level 2.3 g/dL (3.4-5.0); Alkaline Phosphatase 80 U/L (46-116); Anion Gap 10 mmol/L (4-12); Aspartate Amino Transferase 17 U/L (15-37); Bilirubin,Total 0.6 mg/dL (0.00-1.00); Blood Urea Nitrogen 13 mg/dL (7-18); Calcium 8.8 mg/dL (8.5-10.1); Carbon Dioxide 27 mmol/L (21-32); Chloride 101 mmol/L (98-108); Estimated Glomerular Filt Rate 44; Glucose 120 mg/dL (70-99); Osmolality Calculated 287 mOsm/kg (285-295); Potassium 4.4 mmol/L (3.5-5.1); Sodium 138 mmol/L (136-145); Total Protein 6.4 g/dL (6.4-8.2)
== END 2023-12-31 13:20 | disposition home or self-care (01) ==
LOC: CHSLAB 13:22
PROVIDERS: PCP Family Medicine; Visit Provider Family Medicine
DX: R10.9 Unspecified abdominal pain (principal); M54.9 Dorsalgia, unspecified; M43.06 Spondylolysis, lumbar region; N20.0 Calculus of kidney
CPT/HCPCS: 36415; 72100; 80053; 81001; 85025

== ENCOUNTER 2024-01-01 11:01 | Outpatient (CLI) | payer MEDICARE, MEDICAID, SELFPAY ==
[2024-01-01 11:20] LABS: Basophils Absolute Auto 0.1 K/mm3 (0.0-0.1); Basophils Percent Auto 0.5 % (0.2-1.2); Eosinophils Absolute Auto 0.4 K/mm3 (0-0.3); Eosinophils Percent Auto 3.1 % (0-4.4); Hematocrit 33.2 % (42.0-52.0); Hemoglobin 11.2 g/dL (14.0-18.0); Immature Granulocyte Absolute 0.06 K/mm3 (0.00-0.031); Immature Granulocyte Percent A 0.5 % (0-0.5); Lymphocytes Absolute Auto 0.68 K/mm3 (0.9-3.2); Lymphocytes Percent Auto 5.5 % (18.3-44.2); Mean Corpuscular HGB Conc 33.7 g/dl (32-36); Mean Corpuscular Hemoglobin 31.1 pg (26-34); Mean Corpuscular Volume 92.2 fl (80-100); Mean Platelet Volume 10.2 fl (7.4-10.4); Monocytes Absolute Auto 1.5 K/mm3 (0.1-0.6); Monocytes Percent Auto 12.2 % (2.6-8.5); Neutrophils Absolute Auto 9.7 K/mm3 (1.3-6.7); Neutrophils Percent Auto 78.2 % (45.5-73.1); Platelet Count Result 287 k/mm3 (150-375); Red Cell Distribution Width 14.8 % (11.5-14.5); White Blood Count 12.4 K/mm3 (4.5-10.0)
[2024-01-01 11:24] LABS: Blood Urea Nitrogen 14 mg/dL (8-26); Carbon Dioxide 27 mmol/L (22-30); Chloride 98 mmol/L (98-109); Estimated Glomerular Filt Rate 46; Glucose 121 mg/dL (70-105); Ionized Calcium (POC) 1.08 mmol/L (1.11-1.31); Potassium 4.1 mmol/L (3.5-4.9); Sodium 135 mmol/L (138-146)
[2024-01-01 12:44] LABS: Alanine Aminotransferase 13 U/L (6-50); Albumin Level 3.6 g/dL (3.5-5.1); Alkaline Phosphatase 80 U/L (38-126); Anion Gap 9 mmol/L (4-12); Aspartate Amino Transferase 28 U/L (17-59); Bilirubin,Total 0.8 mg/dL (0.2-1.3); Blood Urea Nitrogen 16 mg/dL (9-20); Calcium 9.2 mg/dL (8.4-10.2); Carbon Dioxide 23 mmol/L (22-30); Chloride 102 mmol/L (98-107); Estimated Glomerular Filt Rate 50; Glucose 122 mg/dL (65-110); Potassium 4.1 mmol/L (3.4-5.0); Sodium 134 mmol/L (137-145)
== END 2024-01-01 11:02 | disposition home or self-care (01) ==
PROVIDERS: PCP Family Medicine; Visit Provider Internal Medicine Hematology & Oncology
DX: C34.90 Malignant neoplasm of unspecified part of unspecified bronchus or lung (principal)
CPT/HCPCS: 36415; 80047; 80053; 85025

== ENCOUNTER 2024-01-10 10:14 | Emergency (ER) | payer MEDICARE, MEDICAID, SELFPAY ==
[2024-01-10] VITALS (93 sets, daily range): BP systolic 94–148; BP diastolic 50–98; PULSE 75–115; RESP 12–25; TEMP 36.6–36.9; O2SAT 92–100
--- NOTE | ~2024-01-10 | CT_ITS ---
EXAMINATION: CT chest abdomen pelvis wo con DATE: 01/10/2024 13:37 CDT INDICATION: Bronchogenic carcinoma. Pneumonia. TECHNIQUE: Computed tomography (CT) of the chest, abdomen, and pelvis was performed without intraveno us contrast. The dose-length product was 530.51 mGy-cm. Automated exposure control and iterative antonio nstruction technique were employed. COMPARISON: Chest x-ray dated 01/10/[address] dated 11/21/2023 FINDINGS: CHEST CT: New moderate loculated right pleural effusion. There is patchy consolidation of the upper lobes and r ight lower lobe, consistent with pneumonia. There is a right hilar mass, consistent with known bronch ogenic carcinoma. There is emphysema. Heart size normal. There is right hilar lymphadenopathy, likely metastatic disease. There is atherosclerosis of the aorta and coronary arteries. ABDOMEN/PELVIS CT: There are calcified granulomas of the spleen. The liver, adrenal glands and pancreas are unremarkable . Gallbladder is distended. There is a femorofemoral bypass graft. Cunningham catheter present in the blad azucena. Nonobstructive bowel gas pattern. There is atherosclerosis of the aorta without aneurysm. There are right renal arterial calcifications. There is a 1.9 cm intermediate density exophytic left renal mass, most likely complicated cysts. Consider follow-up correlation with ultrasound on a nonemergent basis. IMPRESSION: 1. Patchy consolidation of the upper lobes and right lower lobe, consistent with pneumonia. 2: New moderate loculated right pleural effusion. 3: Right hilar mass with right hilar lymphadenopathy, consistent with known bronchogenic carcinoma wi th probable metastatic disease. Consider correlation with pet/CT scan. Reviewed, dictated and finalized at location A. IMPRESSION: 1. Patchy consolidation of the upper lobes and right lower lobe, consistent wit h pneumonia. 2: New moderate loculated right pleural effusion. 3: Right hilar mass with right hilar lymphadenopathy, consistent with known bro nchogenic carcinoma with probable metastatic disease. Consider correlation with pet/CT scan.
--- NOTE | ~2024-01-10 | XR_ITS ---
XR chest 1V portable 01/10/2024 10:33 Indication: Generalized weakness and hypotension Procedure: AP portable chest Comparison: 11/21/2023 Findings: New moderate right pleural effusion. There is consolidation in the right upper lobe and rig ht lung base. Portacatheter tip in the SVC. Heart size normal. Left lung clear. The lungs are hyperin flated which is consistent with, but not diagnostic of chronic obstructive pulmonary disease. Right h ilar mass reidentified, consistent with known bronchogenic carcinoma. Impression: 1: Multifocal right-sided consolidation of the lung, consistent with pneumonia. 2: No right pleural effusion. 3: Right hilar mass, consistent with known bronchogenic carcinoma. Reviewed, dictated and finalized at location A. Impression: 1: Multifocal right-sided consolidation of the lung, consistent with pneumonia. 2: No right pleural effusion. 3: Right hilar mass, consistent with known bronchogenic carcinoma.
--- NOTE | 2024-01-10 10:24 | ECG_ITS ---
SEE SCANNED COPY FOR CONFIRMED REPORT MTDD
--- NOTE | 2024-01-10 10:27 | ED.GENADULT ---
HPI - General Adult General Chief complaint: Weakness Stated complaint: weakness; diarrhea Time Seen by Provider: 01/10/24 10:15 Source: patient and EMS Mode of arrival: EMS Limitations: no limitations History of Present Illness HPI narrative: 73-year-old white male brought in by EMS has seen his primary care provider a few days ago for constipation was started on some Mag citrate 4 days ago he started having diarrhea had multiple stools yesterday loose watery and then 3 today did see some blood in his stool yesterday and today. Patient complains of generalized weakness and fatigue without any focal weakness. Gets around in a wheelchair. Denies any problems voiding. Said he has any much yesterday and only had today was a Brownie but denies any nausea or vomiting. Denies any rash or itching, bruising swelling lumps or bumps or any pain anywhere. Denies any cough difficulty breathing shortness of breath dizziness or lightheadedness. denies any other complaints . History above taken from patient and EMS. History from : Patient has early stages of dementia he has had 3 strokes in the past especially last August and September. He has got Parkinson's. We saw Dr. Burgos for his constipation week and a half ago on the and was prescribed 30 mL of lactulose. gave him 15 mL of lactulose 11 days ago, and then 7.5 mL 1 week ago and 3 days ago and yesterday. After yesterday's dose patient had multiple loose watery diarrheal stools since. He has had a little bit of blood in his stool yesterday and today and has not had an appetite over the last week and a half. stated that the last visit they talked about putting him in a skilled nursing as she feels she can no longer take care of him and she has emphysema is on portable oxygen and medical problems herself. Related Data Home Medications Medication Instructions Recorded Confirmed docusate sodium 100 mg capsule 100 mg PO DAILY 09/22/19 01/10/24 saw palm 160 mg-vit E 100 1 tablet PO DAILY 09/22/19 01/10/24 unit-selen 100 jco-gymy-fokpwn-pygeum tablet (REHAPP) loratadine 10 mg tablet 10 mg PO DAILY 04/25/23 01/10/24 atorvastatin 80 mg tablet 80 mg PO HS 09/13/23 01/10/24 bupropion HCl 100 mg tablet 100 mg PO BID 09/13/23 01/10/24 clopidogrel 75 mg tablet 75 mg PO DAILY 09/13/23 01/10/24 duloxetine 30 mg capsule,delayed 30 mg PO BID 09/13/23 01/10/24 release fluticasone fur. 200 mcg-umeclid 1 inh inhalation DAILY 09/13/23 01/10/24 62.5 mcg-vilant 25 mcg inhalat.powder (Trelegy Ellipta) pantoprazole 20 mg tablet,delayed 20 mg PO DAILY 09/13/23 01/10/24 release ferrous sulfate 325 mg (65 mg 325 mg PO DAILY 10/15/23 01/10/24 iron) tablet carbidopa 10 mg-levodopa 100 mg 10 - 100 tablet PO BID 01/10/24 01/10/24 tablet lactulose 10 gram/15 mL oral 20 g PO BID 01/10/24 01/10/24 solution potassium 99 mg tablet 99 mg PO DAILY 01/10/24 01/10/24 propranolol 40 mg tablet 40 mg PO Q12H 01/10/24 01/10/24 vitamin B complex 1 tablet PO DAILY 01/10/24 01/10/24 Allergies Allergy/AdvReac Type Severity Reaction Status Date / Time morphine Allergy Unknown Unknown,Hypotension Verified 01/10/24 10:49 and Hallucinations Review of Systems Review of Systems: All systems reviewed & are unremarkable except as noted in HPI and below PMFSH Past Medical History Medical History (Updated 01/10/24 @ 12:02 by Isiah Benjamin MD) Aortic aneurysm, abdominal Cataracts, bilateral Cognitive decline COPD (chronic obstructive pulmonary disease) CVA (cerebral vascular accident) Essential tremor GERD (gastroesophageal reflux disease) Glaucoma Hyperlipidemia Hypertension Lung cancer Neuropathy (01/19/18) Nicotine dependence Phantom pain after amputation of lower extremity Surgical History Surgical History (Updated 12/09/23 @ 10:42 by Greg Burgos DO) History of below-knee amputation of both lower extremities S/P femoral-popliteal bypass
[2024-01-10] MEDS: SODIUM CHLORIDE 0.9% IV 1,000 ML 999 ML IV CONT ×2 (10:35→11:40)
[2024-01-10] MEDS: ONDANSETRON INJ 4 MG/2 ML VIAL IV PUSH (10:36)
[2024-01-10 10:57] LABS: Hematocrit 29.9 % (37.0-46.0); Hemoglobin 9.8 g/dL (12.4-15.3); Mean Corpuscular HGB Conc 32.8 g/dL (32-36); Mean Corpuscular Hemoglobin 30.2 pg (27.0-31.0); Mean Corpuscular Volume 92.3 fL (78.0-102.0); Mean Platelet Volume 9.6 fl (8.7-11.0); Platelet Count Result 344 K/mm3 (150-420); Red Blood Count 3.24 M/mm3 (4.70-6.10); Red Cell Distribution Width 15.2 % (11.6-14.4); White Blood Count 16.4 K/mm3 (4.8-10.8)
[2024-01-10 11:11] LABS: INR 1.1; Partial Thromboplastin Time 29.9 Sec (23.9-30.70)
[2024-01-10 11:17] LABS: Lactic Acid Reflex 1.1 mmol/L (0.4-2.0)
[2024-01-10 11:24] LABS: Alanine Aminotransferase 29 U/L (16-63); Albumin Level 1.8 g/dL (3.4-5.0); Alkaline Phosphatase 80 U/L (46-116); Anion Gap 11 mmol/L (4-12); Aspartate Amino Transferase 34 U/L (15-37); Bilirubin,Total 0.6 mg/dL (0.00-1.00); Blood Urea Nitrogen 14 mg/dL (7-18); Calcium 8.4 mg/dL (8.5-10.1); Carbon Dioxide 25 mmol/L (21-32); Chloride 100 mmol/L (98-108); Estimated CRCL calculation 35 ml/min; Estimated Glomerular Filt Rate 46; Glucose 105 mg/dL (70-99); Osmolality Calculated 282 mOsm/kg (285-295); Potassium 4.3 mmol/L (3.5-5.1); Sodium 136 mmol/L (136-145); Total Protein 6.5 g/dL (6.4-8.2)
[2024-01-10 11:27] LABS: Lipase 26 U/L (16-77); Magnesium 1.7 mg/dL (1.8-2.4); Troponin I 6.4 ng/L (0.00-60.4)
[2024-01-10 11:27] LABS: Occult Blood Positive (Negative)
[2024-01-10 11:31] LABS: Appearance Urine Clear (Clear); Bilirubin Urine Negative (Negative); Blood Urine 3+ (Negative); Color Urine Light Yellow (Yellow); Glucose Urine UA Negative (Negative); Ketones Urine 1+ (Negative); Leukocyte Esterase Ur Negative LEU/UL (Negative); Nitrate Urine Negative (Negative); Protein Urine Negative (Negative); Specific Grav Ur 1.015 (1.010-1.020); Urobilinogen Urine 0.2 mg/dL (0.2-1.0)
[2024-01-10 11:32] LABS: SARS-CoV-2 RNA PCR Negative (Negative)
[2024-01-10 11:33] LABS: Influenza A QL RT-PCR Negative (Negative); Influenza B QL RT-PCR Negative (Negative); RSV RNA, RT-PCR Negative (Negative)
[2024-01-10 11:33] LABS: Add Urine Microscopic? YES; Bacteria Urine Trace /hpf; Squamous Epithelial Cell Urine Rare /hpf (Few); WBC Urine None seen /hpf (0-3)
[2024-01-10] MEDS: MAGNESIUM SULF 2 GM/WATER 50ML 2 GM/50 ML BAG IVPB (11:42)
[2024-01-10] MEDS: AZITHROMYCIN 500 MG/NS 250 ML 500 MG/250 ML BAG 250 MG IVPB (12:39)
[2024-01-10] MEDS: CEFEPIME 1 GM/NS 50 ML 1 GM/50 ML BAG IVPB ×2 (13:30→22:32)
[2024-01-10] MEDS: VANCOMYCIN 1,500 MG/NS 500 ML 1,500 MG/500 ML BAG 250 MG IVPB (14:10)
[2024-01-10 15:34] LABS: MRSA (PCR) NOT DETECTED (NOT DETECTE)
--- NOTE | 2024-01-10 19:45 | PC.NURSE ---
Inpatient unit aware of needed bed, per Teagan cop patient now refused for admission per charge loader. cop on floor called BRANDY Frank to refuse pt who calls ED and refuses pt for admission.
--- NOTE | 2024-01-10 20:34 | PC.NURSE ---
Pt had small mucous stool with light blood streaks noted. ERP aware. No new orders. Hospital bed being obtained by lock technician at this time.
--- NOTE | 2024-01-10 20:44 | PC.NURSE ---
Pt placed in hospital bed and breathing treatment ordered. SpO2 100% on room air but pt noted to be slightly increased work of breathing upon transferring to bed and with rolling previously with bed patino. Call light in reach. lights dimmed. Pt watching football on television at this time in position of comfort. Side rails up x 3. Pt alert and oriented to person and place. Confused to situation but is calm and directable.
[2024-01-10] MEDS: IPRATROPIUM 0.5 MG/ALBUTEROL SULFATE 2.5 MG AMPUL.NEB 3 ML (20:55)
--- NOTE | 2024-01-10 21:23 | PC.NURSE ---
Pt resting eyes closed and rhythmic breathing. No distress noted. Call light in reach. Side rails up x 3. Bed-side table in reach.
--- NOTE | 2024-01-10 21:40 | PC.NURSE ---
Update given to Keely at [facility] access line. Per Keely approx 1-2 day wait expected for bed as [facility] is at capacity.
[2024-01-10] MEDS: SODIUM CHLORIDE 0.9% IV 1,000 ML 125 ML IV CONT (21:51)
--- NOTE | 2024-01-10 21:56 | PC.NURSE ---
Pt had approx 10 ml of similar stool to last stool of mucous with blood streaking. Pt repositioned in bed. No distress noted. Skin warm, dry, and pink. IV fluids initiated. Awaiting pharmacy verification for several medications.
[2024-01-10] MEDS: PROPRANOLOL HCL 20 MG TABLET 40 MG PO (22:58)
[2024-01-10] MEDS: CARBIDOPA/LEVODOPA 10/100 MG TABLET 1 TABLET PO (23:12)
[2024-01-10] MEDS: PREGABALIN (*CRX) 25 MG CAPSULE 225 MG PO (23:13)
[2024-01-11] VITALS (76 sets, daily range): BP systolic 103–148; BP diastolic 52–96; PULSE 66–94; RESP 14–25; TEMP 36.2–37.6; O2SAT 92–100
--- NOTE | 2024-01-11 00:38 | PC.NURSE ---
Pt resting comfortably. Wellbutrin dose needed is not available at this facility. ERP aware and verbal order to cancel single dose tonight.
[2024-01-11] MEDS: IPRATROPIUM 0.5 MG/ALBUTEROL SULFATE 2.5 MG AMPUL.NEB 3 ML INHALATION ×3 (01:03→12:41)
--- NOTE | 2024-01-11 04:30 | PC.NURSE ---
Pt heard coughing from desk. Checked on pt voices no new needs, coughing subsided. SpO2 remains 96% on room air and respirations even and non-labored.
--- NOTE | 2024-01-11 05:17 | PC.NURSE ---
ERP aware of urine output will order additional maintenance fluids. Urine dark yellow approx 300 mL out.
[2024-01-11] MEDS: SODIUM CHLORIDE 0.9% IV 1,000 ML 150 ML IV CONT (05:21)
[2024-01-11 05:35] LABS: Hematocrit 27.5 % (37.0-46.0); Hemoglobin 8.6 g/dL (12.4-15.3); Mean Corpuscular HGB Conc 31.3 g/dL (32-36); Mean Corpuscular Hemoglobin 29.8 pg (27.0-31.0); Mean Corpuscular Volume 95.2 fL (78.0-102.0); Mean Platelet Volume 10.1 fl (8.7-11.0); Platelet Count Result 306 K/mm3 (150-420); Red Blood Count 2.89 M/mm3 (4.70-6.10); Red Cell Distribution Width 15.5 % (11.6-14.4)
[2024-01-11 05:54] LABS: Alanine Aminotransferase 15 U/L (16-63); Albumin Level 1.4 g/dL (3.4-5.0); Alkaline Phosphatase 66 U/L (46-116); Anion Gap 6 mmol/L (4-12); Aspartate Amino Transferase 44 U/L (15-37); Bilirubin,Total 0.3 mg/dL (0.00-1.00); Blood Urea Nitrogen 7 mg/dL (7-18); Calcium 7.2 mg/dL (8.5-10.1); Carbon Dioxide 26 mmol/L (21-32); Chloride 106 mmol/L (98-108); Estimated CRCL calculation 44 ml/min; Estimated Glomerular Filt Rate > 60; Glucose 104 mg/dL (70-99); Osmolality Calculated 284 mOsm/kg (285-295); Potassium 4.1 mmol/L (3.5-5.1); Sodium 138 mmol/L (136-145); Total Protein 5.8 g/dL (6.4-8.2); Troponin I 10.3 ng/L (0.00-60.4)
--- NOTE | 2024-01-11 07:33 | ED.GENADULT ---
HPI - General Adult General Chief complaint: Weakness Stated complaint: weakness; diarrhea Time Seen by Provider: 01/10/24 10:15 Source: patient and EMS Mode of arrival: EMS Limitations: no limitations History of Present Illness HPI narrative: I took over from the previous provider in the management of this patient. Please refer to their note for further details. In brief, the patient is a 73-year-old male who had constipation, treated with magnesium citrate and lactulose. He subsequently had loose stools with watery diarrhea with some hematochezia. Decreased appetite and strength. The states that they are considering long term placement for care since she is unable to take care of him at this point with her medical conditions. Patient's evaluation yesterday revealed him to have a moderate right pleural effusion that is loculated, with right lower lobe pneumonia and airspace disease bilaterally. He received initially Rocephin and azithromycin intravenously and then was treated with cefepime and vancomycin. He was initially declined for hospitalization in this institution and also at [facility] due to the loculated pleural effusion which would require general thoracic surgical consultation for further management. He was discussed with the team at [facility] and was accepted for transfer by the hospitalist although there was no bed available yesterday. He is awaiting a bed for transfer. His evaluation also revealed mild acute kidney injury with a BUN of 14 creatinine 1.5 for which she received IV hydration. His hemoglobin yesterday was 9.8 with a hematocrit of 29.9. The white blood cell count was elevated at 16.4. See results below. Magnesium was 1.7 and was supplemented intravenously. The patient received additional labs this morning, see results below. He remains on IV fluids. He has received a total of 3 L and is currently on 150 cc/hour. Past medical history is as noted below: Bilateral rwpla-eax-lnns amputation due to failed vascular surgical procedures with femoropopliteal bypass. There is cognitive decline, COPD on room air, prior stroke, GERD, hyperlipidemia, hypertension, and cigarette use. He has had a right hilar mass, Bronchogenic carcinoma, treated by Oncology and according to the family is stable. He has dementia. Related Data Home Medications Medication Instructions Recorded Confirmed docusate sodium 100 mg capsule 100 mg PO DAILY 09/22/19 01/10/24 saw palm 160 mg-vit E 100 1 tablet PO DAILY 09/22/19 01/10/24 unit-selen 100 nar-ghlo-vfuaio-pygeum tablet (Prostate Health) loratadine 10 mg tablet 10 mg PO DAILY 04/25/23 01/10/24 atorvastatin 80 mg tablet 80 mg PO HS 09/13/23 01/10/24 bupropion HCl 100 mg tablet 100 mg PO BID 09/13/23 01/10/24 clopidogrel 75 mg tablet 75 mg PO DAILY 09/13/23 01/10/24 duloxetine 30 mg capsule,delayed 30 mg PO BID 09/13/23 01/10/24 release fluticasone fur. 200 mcg-umeclid 1 inh inhalation DAILY 09/13/23 01/10/24 62.5 mcg-vilant 25 mcg inhalat.powder (Trelegy Ellipta) pantoprazole 20 mg tablet,delayed 20 mg PO DAILY 09/13/23 01/10/24 release ferrous sulfate 325 mg (65 mg 325 mg PO DAILY 10/15/23 01/10/24 iron) tablet carbidopa 10 mg-levodopa 100 mg 10 - 100 tablet PO BID 01/10/24 01/10/24 tablet lactulose 10 gram/15 mL oral 20 g PO BID 01/10/24 01/10/24 solution potassium 99 mg tablet 99 mg PO DAILY 01/10/24 01/10/24 propranolol 40 mg tablet 40 mg PO Q12H 01/10/24 01/10/24 vitamin B complex 1 tablet PO DAILY 01/10/24 01/10/24 Allergies Allergy/AdvReac Type Severity Reaction Status Date / Time morphine Allergy Unknown Unknown,Hypotension Verified 01/10/24 10:49 and Hallucinations Review of Systems Review of Systems: All systems reviewed & are unremarkable except as noted in HPI and below Constitutional: Constitutional: Denies chills, Denies excessive sweating, Reports fatigue, Denies fever(s), Denies he
[2024-01-11] MEDS: SODIUM CHLORIDE 0.9% IV 1,000 ML 100 ML IV CONT (08:19)
[2024-01-11] MEDS: FUROSEMIDE INJ 40 MG/4 ML VIAL IV PUSH (08:22)
[2024-01-11] MEDS: POTASSIUM CHLORIDE 20 MEQ PACKET (FOR LIQUID) PO (08:22)
[2024-01-11] MEDS: CEFEPIME 2 GM/NS 50 ML 2 GM/50 ML BAG IVPB (08:34)
[2024-01-11] MEDS: PANTOPRAZOLE 40 MG TABLET PO (08:34)
[2024-01-11] MEDS: LORATADINE 10 MG TABLET PO (08:34)
[2024-01-11] MEDS: PROPRANOLOL HCL 20 MG TABLET 40 MG PO (08:54)
[2024-01-11] MEDS: ATORVASTATIN 40 MG TABLET 80 MG PO (08:55)
[2024-01-11] MEDS: buPROPion HCL SR (12 HR) 150 MG TAB PO (08:55)
[2024-01-11] MEDS: CARBIDOPA/LEVODOPA 10/100 MG TABLET 1 TABLET PO ×2 (08:55→17:01)
[2024-01-11] MEDS: FERROUS SULFATE 325 MG TABLET DR PO (08:56)
[2024-01-11] MEDS: PREGABALIN (*CRX) 100 MG CAPSULE 200 MG PO (08:57)
[2024-01-11] MEDS: PREGABALIN (*CRX) 25 MG CAPSULE PO (08:57)
[2024-01-11] MEDS: DULoxetine HCL 30 MG CAPSULE.DR PO ×2 (09:01→17:02)
[2024-01-11] MEDS: VANCOMYCIN 1,000 MG/NS 250 ML 1,000 MG/250 ML BAG 250 MG IVPB (14:00)
--- NOTE | 2024-01-16 13:17 | PC.NURSE ---
blood culture reviewed. no growth 5 day noted.
== END 2024-01-11 18:00 | disposition short-term general hospital (02) ==
PROVIDERS: Emergency Medicine; Emergency Provider Emergency Medicine; PCP Family Medicine
DX: J18.9 Pneumonia, unspecified organism (principal); R19.7 Diarrhea, unspecified; K92.2 Gastrointestinal hemorrhage, unspecified; N17.9 Acute kidney failure, unspecified; E86.0 Dehydration; E83.42 Hypomagnesemia; D64.9 Anemia, unspecified; J90 Pleural effusion, not elsewhere classified; C34.01 Malignant neoplasm of right main bronchus; Z99.3 Dependence on wheelchair; G20.A1 Parkinson's disease without dyskinesia, without mention of fluctuations; F02.80 Dementia in other diseases classified elsewhere, unspecified severity, without behavioral disturbance, psychotic disturbance, mood disturbance, and anxiety; I71.40 Abdominal aortic aneurysm, without rupture, unspecified; J44.9 Chronic obstructive pulmonary disease, unspecified; I10 Essential (primary) hypertension; E78.5 Hyperlipidemia, unspecified; G62.9 Polyneuropathy, unspecified; H40.9 Unspecified glaucoma; Z20.822 Contact with and (suspected) exposure to COVID-19; Z86.73 Personal history of transient ischemic attack (TIA), and cerebral infarction without residual deficits; Z79.02 Long term (current) use of antithrombotics/antiplatelets; Z79.51 Long term (current) use of inhaled steroids; Z89.512 Acquired absence of left leg below knee; Z89.511 Acquired absence of right leg below knee; F17.210 Nicotine dependence, cigarettes, uncomplicated; F12.90 Cannabis use, unspecified, uncomplicated; Z79.899 Other long term (current) drug therapy
CPT/HCPCS: 36415; 71045; 71250; 74176; 80053; 80366; 81001; 82272; 83605; 83690; 83735; 84484; 85027; 85610; 85730; 87040; 87637; 87641; 93005; 94640; 96361; 96365; 96366; 96367; 96368; 96375; 99285; A9270; G0480; J0456; J0692; J0696; J1940; J2405; J3370; J3475; J7030